=== PATIENT | female | born 1950 | race Caucasian/White ===

== ENCOUNTER 2021-06-10 21:41 | Inpatient (IN) | payer MEDICARE, BC ==
[~2021-06-10] VITALS: Ht 152.4 cm; Wt 62.7 kg
[2021-06-10 22:20] LABS: BASO # 0.1 x10^3/uL (0.0-0.2); BASO % 1 % (0-3); EOS % 0 % (0-3); HEMATOCRIT 30.6 % (36.0-47.0); HEMOGLOBIN 10.1 g/dL (12.0-15.5); LYMPH # 1.2 x10^3/uL (1.0-4.8); LYMPH % 11 % (24-48); MEAN CORPUSCULAR HEMOGLOBIN 31 pg (25-35); MEAN CORPUSCULAR HGB CONC 33 g/dL (31-37); MEAN CORPUSCULAR VOLUME 92 fL (79-100); MONO # 0.4 x10^3/uL (0.0-1.1); MONO % 3 % (0-9); NEUT # 9.9 x10^3/uL (1.8-7.7); NEUT % 86 % (31-73); PLATELET COUNT 417 x10^3/uL (140-400); RED BLOOD COUNT 3.33 x10^6/uL (3.50-5.40); RED CELL DISTRIBUTION WIDTH 16.8 % (11.5-14.5); WHITE BLOOD COUNT 11.6 x10^3/uL (4.0-11.0)
[2021-06-10 22:29] LABS: CALCIUM 8.7 mg/dL (8.5-10.1); CREATININE 1.8 mg/dL (0.6-1.0); GFR 27.7; POTASSIUM 3.4 mmol/L (3.5-5.1)
[2021-06-10] MEDS ORDERED: IV NORMAL SALINE 1000ML BAG 1,000 ML IV ONE ×2 (22:30→23:45)
[2021-06-10 22:35] LABS: ALBUMIN 3.4 g/dL (3.4-5.0); ALBUMIN/GLOBULIN RATIO 0.6 (1.0-1.7); TOTAL BILIRUBIN 0.6 mg/dL (0.2-1.0)
[2021-06-10 22:38] LABS: INFLUENZA A PATIENT NEGATIVE (NEGATIVE); INFLUENZA B PATIENT NEGATIVE (NEGATIVE)
[2021-06-10 22:50] LABS: BILIRUBIN,URINE SMALL (NEG); CLARITY,URINE CLEAR; COLOR,URINE YELLOW; NITRITE,URINE NEGATIVE (NEG); PROTEIN,URINE NEGATIVE (NEG-TRACE); UROBILINOGEN,URINE 0.2 mg/dL (0.2 mg/dL)
--- NOTE | 2021-06-10 22:55 | RAD ---
Exam: Chest one view INDICATION: Cough TECHNIQUE: Frontal view of the chest Comparisons: None FINDINGS: Surgical clips overlying the left lung base. The cardiomediastinal silhouette and pulmonary vessels are within normal limits. Patchy bibasilar airspace disease. No pleural effusion IMPRESSION: Subtle bibasilar airspace disease may be infectious or inflammatory in etiology. Electronically signed by: Nupur Clemente MD (06/10/2021 10:53 PM) SADIE
[2021-06-10 23:05] LABS: BACTERIA,URINE MANY /HPF (0-FEW); HYALINE CASTS, URINE FEW /HPF; RBC,URINE 0 /HPF (0-2)
--- NOTE | 2021-06-10 23:18 | PHYS DOC ---
Past Medical History Past Medical History: Diabetes-Type II, Fibromyalgia, High Cholesterol, Hypertension Additional Past Medical Histor: Rheumatoid arthritis Past Surgical History: Cholecystectomy, Tubal ligation Additional Past Surgical Histo: HERNIA General Adult EDM: Chief Complaint: WEAKNESS/GENERALIZED HPI: HPI: Patient is a 71 year old female with history of HTN, HLD, DM, rheumatoid arthritis on tofacitinib who presents with 4 days of fatigue, cough, congestion, mild shortness of breath. Denies fever/chills. Over the past couple of days has had nausea and diarrhea. No dark/bloody stools. Denies chest pain, lower extremity edema, recent surgery or prolonged immobilizations. She had a negative outpatient Covid test earlier this week. She had an episode of decreased consciousness on the way to the hospital, where she slumped in her car seat, and spontaneously became alert once again. She states that she remembers the entire episode. Prehospital stroke scale was negative. Glucose in 200s. Was placed on 2lpm NC prior to arrival. Review of Systems: Review of Systems: Constitutional: Denies fever or chills. [] Eyes: Denies change in visual acuity. [] HENT: Reports nasal congestion Respiratory: Reports cough and shortness of breath Cardiovascular: Denies chest pain or edema. [] GI: Denies abdominal pain. Reports nausea and diarrhea. Musculoskeletal: Denies back pain or joint pain. [] Integument: Denies rash. [] Neurologic: Denies headache, focal weakness or sensory changes. [] Psychiatric: Denies depression or anxiety. [] Heart Score: C/O Chest Pain: No Current Medications: Current Medications Medications (Trade) Dose Ordered Sig/Carlos Start Time Stop Time Status Last Admin Dose Admin Ceftriaxone Sodium (Rocephin) 1 gm 1X ONCE 06/10/21 23:30 06/10/21 23:31 Dexamethasone Sodium Phosphate (Decadron) 6 mg 1X ONCE 06/10/21 23:30 06/10/21 23:31 Doxycycline Hyclate (Vibra-Tab) 100 mg 1X ONCE 06/10/21 23:30 06/10/21 23:31 Sodium Chloride 1,000 ml @ 1,000 mls/hr 1X ONCE 06/10/21 22:30 06/10/21 23:29 06/10/21 22:30 1,000 MLS/HR Allergies: Allergies: Allergies Coded Allergies Type Severity Reaction Last Updated Verified No Known Drug Allergies 06/10/21 No Physical Exam: PE: Constitutional: Well developed, well nourished, no acute distress, non-toxic appearance. [] HENT: Normocephalic, atraumatic, bilateral external ears normal, oropharynx moist, no oral exudates, nose normal. [] Eyes: PERRLA, EOMI, conjunctiva normal, no discharge. [] Neck: Normal range of motion, no tenderness, supple, no stridor. [] Cardiovascular:Heart rate regular rhythm, no murmur [] Lungs & Thorax: Crackles in the bases, normal work of breathing. Desaturations to 88% on room air. Stabilizes on nasal cannula. Abdomen: Bowel sounds normal, soft, no tenderness, no masses, no pulsatile masses. [] Skin: Warm, dry, no erythema, no rash. [] Back: No tenderness, no CVA tenderness. [] Extremities: No tenderness, no cyanosis, no clubbing, ROM intact, no edema. [] Neurologic: Alert and oriented X 3, normal motor function, normal sensory function, no focal deficits noted. [] Psychologic: Affect normal, judgement normal, mood normal. [] Current Patient Data: Labs: Laboratory Tests Test 06/10/21 22:00 06/10/21 22:08 06/10/21 22:30 White Blood Count 11.6 x10^3/uL (4.0-11.0) H Red Blood Count 3.33 x10^6/uL (3.50-5.40) L Hemoglobin 10.1 g/dL (12.0-15.5) L Hematocrit 30.6 % (36.0-47.0) L Mean Corpuscular Volume 92 fL (79-100) Mean Corpuscular Hemoglobin 31 pg (25-35) Mean Corpuscular Hemoglobin Concent 33 g/dL (31-37) Red Cell Distribution Width 16.8 % (11.5-14.5) H Platelet Count 417 x10^3/uL (140-400) H Neutrophils (%) (Auto) 86 % (31-73) H Lymphocytes (%) (Auto) 11 % (24-48) L Monocytes (%) (Auto) 3 % (0-9) Eosinophils (%) (Auto) 0 % (0-3) Basophils (%) (Auto) 1 % (0-3) Neutrophils # (Auto) 9.9 x10^3/uL (1.8-7.7) H Lymphocytes # (Auto) 1.2 x10^3/uL (1.0-4.8) Monocytes # (Auto) 0.4 x10^3/uL (0.0-1.1) Eosinophils # (Auto) 0.0 x10^3/uL (0.0-0.7) Basophils # (Auto) 0.1 x10^3/uL (0.0-0.2) Platelet Estimate Pending Sodium Level 127 mmol/L (136-145) L Potassium Level 3.4 mmol/L (3.5-5.1) L Chloride Level 90 mmol/L (98-107) L Carbon Dioxide Level 24 mmol/L (21-32) Anion Gap 13 (6-14) Blood Urea Nitrogen 54 mg/dL (7-20) H Creatinine 1.8 mg/dL (0.6-1.0) H Estimated GFR (Cockcroft-Gault) 27.7 BUN/Creatinine Ratio 30 (6-20) H Glucose Level 129 mg/dL (70-99) H Lactic Acid Level 4.5 mmol/L (0.4-2.0) *H Calcium Level 8.7 mg/dL (8.5-10.1) Total Bilirubin 0.6 mg/dL (0.2-1.0) Aspartate Amino Transferase (AST) 54 U/L (15-37) H Alanine Aminotransferase (ALT) 43 U/L (14-59) Alkaline Phosphatase 78 U/L (46-116) Troponin I High Sensitivity 9 ng/L (4-50) Total Protein 9.0 g/dL (6.4-8.2) H Albumin 3.4 g/dL (3.4-5.0) Albumin/Globulin Ratio 0.6 (1.0-1.7) L Influenza Type A Antigen Negative (NEGATIVE) Influenza Type B Antigen Negative (NEGATIVE) SARS-CoV-2 Antigen (Rapid) Positive (NEGATIVE) *A Urine Collection Type U cath Urine Color Yellow Urine Clarity Clear Urine pH 6.0 (<5.0-8.0) Urine Specific [place] 1.020 (1.000-1.030) Urine Protein Negative mg/dL (NEG-TRACE) Urine Glucose (UA) Negative mg/dL (NEG) Urine Ketones (Stick) Trace mg/dL (NEG) Urine Blood Negative (NEG) Urine Nitrite Negative (NEG) Urine Bilirubin Small (NEG) Urine Urobilinogen Dipstick 0.2 mg/dL (0.2 mg/dL) Urine Leukocyte Esterase Small (NEG) Urine RBC 0 /HPF (0-2) Urine WBC 5-10 /HPF (0-4) Urine Squamous Epithelial Cells Mod /LPF Urine Bacteria Many /HPF (0-FEW) Urine Hyaline Casts Few /HPF Urine Mucus Mod /LPF Laboratory Tests 06/10/21 22:00 Laboratory Tests 06/10/21 22:00 Vital Signs: Vital Signs Date Time Temp Pulse Resp B/P (MAP) Pulse Ox O2 Delivery O2 Flow Rate FiO2 06/10/21 21:45 98.3 100 20 131/59 (83) 96 Nasal Cannula 2.0 98.3 EKG: EKG: Sinus rhythm. Rate 104. Mild lateral ST depressions. No ST elevation. [] Radiology/Procedures: Radiology/Procedures: [] Impression: [facility] [address] [place] [address] IMAGING REPORT Signed PATIENT: HOLLI FIGUEROA ACCOUNT: [id number] : 1950 LOCATION: ER AGE: 71 SEX: F EXAM STATUS: REG ER ORD. PHYSICIAN: RAQUEL AWAD MD REASON: cough, sob, fatigue PROCEDURE: CHEST AP ONLY Exam: Chest one view INDICATION: Cough TECHNIQUE: Frontal view of the chest Comparisons: None FINDINGS: Surgical clips overlying the left lung base. The cardiomediastinal silhouette and pulmonary vessels are within normal limits. Patchy bibasilar airspace disease. No pleural effusion IMPRESSION: Subtle bibasilar airspace disease may be infectious or inflammatory in etiology. Electronically signed by: Nupur Bridges MD (06/10/2021 10:53 PM) [facility] DICTATED and SIGNED BY: NUPUR BRIDGES MD DATE: 06/10/21 [id number] Course & Med Decision Making: Course & Med Decision Making Pertinent Labs and Imaging studies reviewed. (See chart for details) Patient is 71-year-old female with history of DM, HTN, HLD, RA on tofacitinib who presents with several days of fatigue, cough, shortness of breath, nausea, diarrhea. On arrival is afebrile, mildly tachycardic, BP stable. She had desaturations to 88% on room air, but corrected with 2 L/min nasal cannula. Sepsis work-up initiated. Lactate elevated at 4.5. CXR shows subtle bibasilar opacities and WBC mildly elevated. Will give CTX, doxycycline, IV fluids. COVID is positive. Given O2 requirement dexamethasone ordered. Labs also pertinent for mild hyponatremia 127, Cr 1.8 (no baseline for comparison). UA pending at time of admission, but should be adequately covered for UTI given abx selection. Patient verifies with me a DNR/DNI code status. [id number] Marlon Disclaimer: Marlon Disclaimer: This electronic medical record was generated, in whole or in part, using a voice recognition dictation system. Departure Departure Impression: Primary Impression: Respiratory failure with hypoxia Additional Impressions: Pneumonia due to COVID-19 virus Hyponatremia Hypokalemia Elevated serum creatinine Immunocompromised state due to drug therapy Disposition: ADMITTED INPATIENT Admitting Physician: NOVA Oliveira) Condition: STABLE Referrals: NAYE LOCKWOOD MD (PCP) RAQUEL AWAD MD Jun 10, 2021 23:18
[2021-06-10] MEDS ORDERED: DEXAMETHASONE SOD PHOS 4 MG/ML VIAL IVP ONE (23:30)
[2021-06-10] MEDS ORDERED: cefTRIAXone IV Push 1 GM VIAL. IVP ONE (23:30)
[2021-06-10] MEDS ORDERED: DOXYCYCLINE HYCLATE 100 MG TABLET PO ONE (23:30)
--- NOTE | 2021-06-11 02:03 | EKG ---
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
[2021-06-11 04:41] LABS: % ATYL 1 % (0-0); % BANDS 11 % (0-9); % LYMPHS 11 % (24-48); % SEGS 77 % (35-66); PLT ESTIMATE INCREASED (ADEQUATE); POLYCHROMASIA SLIGHT
[2021-06-11 05:42] VITALS: BP 134/64
[2021-06-11 07:00] VITALS: BP 137/64
[2021-06-11] MEDS ORDERED: oxyCODONE/APAP 5/325 1 TAB TABLET PO PRN ×2 (10:00)
[2021-06-11] MEDS ORDERED: ZOLPIDEM 5 MG TABLET. PO PRN (10:00)
[2021-06-11] MEDS ORDERED: ONDANSETRON PF 4 MG/2 ML VIAL. IVP PRN (10:00)
[2021-06-11] MEDS ORDERED: ELECTROLYTE (NON-ICU) PROTOCOL. MC PRN (10:00)
[2021-06-11] MEDS ORDERED: CALCIUM CARBONATE 500 MG TAB.CHEW PO PRN (10:00)
[2021-06-11] MEDS: DOXYCYCLINE HYCLATE 100 MG TABLET PO SCH ×2 (10:38→21:39)
[2021-06-11] MEDS: cefTRIAXone IV Push 1 GM VIAL. IVP SCH (10:39)
[2021-06-11 11:00] VITALS: BP 132/61
--- NOTE | 2021-06-11 11:04 | PDOC1 ---
History and Physical Date of Service: DOS: DATE: 06/11/21 TIME: 10:55 Chief Complaint: Chief Complain: weakness, sob History of Present Illness: HPI: Patient is 71-year-old female presented to the emergency room overnight 5-day history of fatigue cough congestion shortness of breath. Says her symptoms have been continually worsening. She has been Covid vaccinated. No test earlier this week she says it was negative. With the symptoms still worsening she decided to present to the hospital. While driving here she had some decreased consciousness in the car became alert again within a few seconds. When I evaluated her in the emergency room she was resting in bed on 2 L nasal cannula. She said her breathing was still a little bit labored but otherwise no complaints. Past Medical/Surgical History: PMH/PSH: Past Medical History: Diabetes-Type II, Fibromyalgia, High Cholesterol, Hypertension Additional Past Medical Histor: Rheumatoid arthritis on Xeljanz Past Surgical History: Cholecystectomy, Tubal ligation Additional Past Surgical Histo: HERNIA Allergies: Allergies: Coded Allergies: No Known Drug Allergies (Unverified , 06/10/21) Family History: Family History: HTN Current Medications: Current Medications Current Medications Sodium Chloride 1,000 ml @ 1,000 mls/hr 1X ONCE IV Last administered on 06/10/21at 22:30; Start 06/10/21 at 22:30; Stop 06/10/21 at 23:29; Status DC Dexamethasone Sodium Phosphate (Decadron) 6 mg 1X ONCE IVP Last administered on 06/10/21at 23:44; Start 06/10/21 at 23:30; Stop 06/10/21 at 23:31; Status DC Ceftriaxone Sodium (Rocephin) 1 gm 1X ONCE IVP Last administered on 06/10/21at 23:45; Start 06/10/21 at 23:30; Stop 06/10/21 at 23:31; Status DC Doxycycline Hyclate (Vibra-Tab) 100 mg 1X ONCE PO Last administered on 06/10/21at 23:43; Start 06/10/21 at 23:30; Stop 06/10/21 at 23:31; Status DC Sodium Chloride 1,000 ml @ 100 mls/hr 1X ONCE IV Last administered on 06/10/21at 23:41; Start 06/10/21 at 23:45; Stop 06/11/21 at 09:44; Status DC Dexamethasone Sodium Phosphate (Decadron) 6 mg DAILY IVP ; Start 06/12/21 at 09:00 Ceftriaxone Sodium (Rocephin) 1 gm Q24H IVP Last administered on 06/11/21at 10:39; Start 06/11/21 at 10:00 Doxycycline Hyclate (Vibra-Tab) 100 mg BID PO Last administered on 06/11/21at 10:38; Start 06/11/21 at 10:00 Ondansetron HCl (Zofran) 4 mg PRN Q6HRS PRN IVP NAUSEA/VOMITING; Start 06/11/21 at 10:00 Calcium Carbonate/ Glycine (Tums) 500 mg PRN Q3HRS PRN PO UPSET STOMACH; Start 06/11/21 at 10:00 Zolpidem Tartrate (Ambien) 5 mg PRN QHS PRN PO INSOMNIA, MAY REPEAT IN 1HR; Start 06/11/21 at 10:00 Info (Non-Icu Electrolyte Protocol) 1 ea PRN DAILY PRN MC SEE COMMENTS; Start 06/11/21 at 10:00 Oxycodone/ Acetaminophen (Percocet 5/325) 1 tab PRN Q4HRS PRN PO MILD PAIN, 1ST CHOICE; Start 06/11/21 at 10:00 Oxycodone/ Acetaminophen (Percocet 5/325) 2 tab PRN Q4HRS PRN PO MODERATE PAIN, SEVERE PAIN; Start 06/11/21 at 10:00 Acetaminophen (Tylenol) 650 mg PRN Q6HRS PRN PO Headaches, Temp > 101.5F; Start 06/11/21 at 10:00 Senna/Docusate Sodium (Senna Plus) 1 tab BID PO ; Start 06/11/21 at 21:00 Heparin Sodium (Porcine) (Heparin Sodium) 5,000 unit Q8HRS SQ ; Start 06/11/21 at 14:00 ROS: Review of Systems Review of System Unless noted in HPI 14 point review of systems was negative Physical Exam: Vital Signs: Vital Signs Date Time Temp Pulse Resp B/P (MAP) Pulse Ox O2 Delivery O2 Flow Rate FiO2 06/11/21 05:42 98.1 94 20 134/64 (87) 95 Nasal Cannula 2.0 98.1 Physcial Exam: GEN: No apparent distress. Alert and oriented HEENT: Normal cephalic, atraumatic, external auditory canals are patent EYES: Extraocular muscles are intact, pupil are equally round and reactive to light and accommodation MUSCULOSKELETAL: Well developed , well nourished, good range of motion ENDOCRINE: No thyromegaly was palpated LYMPHATICS: No cervical chain or axillary nodes were noted HEMATOPOIETIC: No bruising NECK: Supple, no JVD, no thyromegaly was noted LUNGS: On nasal cannula some labored respirations HEART: RRR, S!, S2 present. Peripheral pulses intact, no obvious murmurs noted ABDOMEN: Soft, nontender. Positive bowel sounds, no organomegaly, normal b owel sounds EXTREMITIES: Without clubbing, cyanosis, or edema. Pedal pulses intact. Negative Homans sign NEUROLOGIC: Normal speech and tone. A&O x 3, moves all extremities, no obvious focal deficits PSYCHIATRIC: Normal affect, normal mood. Stable SKIN: No ulcerations or rashes, good skin turgor, no jaundice VASCULAR: Good capillary refill, neurovascular bundle appears to be intact Labs: Labs: Laboratory Tests Test 06/10/21 22:00 06/10/21 22:08 06/10/21 22:30 06/11/21 07:56 White Blood Count 11.6 x10^3/uL (4.0-11.0) Red Blood Count 3.33 x10^6/uL (3.50-5.40) Hemoglobin 10.1 g/dL (12.0-15.5) Hematocrit 30.6 % (36.0-47.0) Mean Corpuscular Volume 92 fL (79-100) Mean Corpuscular Hemoglobin 31 pg (25-35) Mean Corpuscular Hemoglobin Concent 33 g/dL (31-37) Red Cell Distribution Width 16.8 % (11.5-14.5) Platelet Count 417 x10^3/uL (140-400) Neutrophils (%) (Auto) 86 % (31-73) Lymphocytes (%) (Auto) 11 % (24-48) Monocytes (%) (Auto) 3 % (0-9) Eosinophils (%) (Auto) 0 % (0-3) Basophils (%) (Auto) 1 % (0-3) Neutrophils # (Auto) 9.9 x10^3/uL (1.8-7.7) Lymphocytes # (Auto) 1.2 x10^3/uL (1.0-4.8) Monocytes # (Auto) 0.4 x10^3/uL (0.0-1.1) Eosinophils # (Auto) 0.0 x10^3/uL (0.0-0.7) Basophils # (Auto) 0.1 x10^3/uL (0.0-0.2) Segmented Neutrophils % 77 % (35-66) Band Neutrophils % 11 % (0-9) Lymphocytes % 11 % (24-48) Atypical Lymphocytes % (Manual) 1 % (0-0) Platelet Estimate Increased (ADEQUATE) Giant Platelets Occ Polychromasia Slight Sodium Level 127 mmol/L (136-145) Potassium Level 3.4 mmol/L (3.5-5.1) Chloride Level 90 mmol/L (98-107) Carbon Dioxide Level 24 mmol/L (21-32) Anion Gap 13 (6-14) Blood Urea Nitrogen 54 mg/dL (7-20) Creatinine 1.8 mg/dL (0.6-1.0) Estimated GFR (Cockcroft-Gault) 27.7 BUN/Creatinine Ratio 30 (6-20) Glucose Level 129 mg/dL (70-99) Lactic Acid Level 4.5 mmol/L (0.4-2.0) Calcium Level 8.7 mg/dL (8.5-10.1) Total Bilirubin 0.6 mg/dL (0.2-1.0) Aspartate Amino Transf (AST/SGOT) 54 U/L (15-37) Alanine Aminotransferase (ALT/SGPT) 43 U/L (14-59) Alkaline Phosphatase 78 U/L (46-116) Troponin I High Sensitivity 9 ng/L (4-50) Total Protein 9.0 g/dL (6.4-8.2) Albumin 3.4 g/dL (3.4-5.0) Albumin/Globulin Ratio 0.6 (1.0-1.7) Influenza Type A Antigen Negative (NEGATIVE) Influenza Type B Antigen Negative (NEGATIVE) SARS-CoV-2 Antigen (Rapid) Positive (NEGATIVE) Urine Collection Type U cath Urine Color Yellow Urine Clarity Clear Urine pH 6.0 (<5.0-8.0) Urine Specific [place] 1.020 (1.000-1.030) Urine Protein Negative mg/dL (NEG-TRACE) Urine Glucose (UA) Negative mg/dL (NEG) Urine Ketones (Stick) Trace mg/dL (NEG) Urine Blood Negative (NEG) Urine Nitrite Negative (NEG) Urine Bilirubin Small (NEG) Urine Urobilinogen Dipstick 0.2 mg/dL (0.2 mg/dL) Urine Leukocyte Esterase Small (NEG) Urine RBC 0 /HPF (0-2) Urine WBC 5-10 /HPF (0-4) Urine Squamous Epithelial Cells Mod /LPF Urine Bacteria Many /HPF (0-FEW) Urine Hyaline Casts Few /HPF Urine Mucus Mod /LPF Glucose (Fingerstick) 150 mg/dL (70-99) Laboratory Tests Test 06/10/21 22:00 06/10/21 22:08 06/10/21 22:30 06/11/21 07:56 White Blood Count 11.6 x10^3/uL (4.0-11.0) Red Blood Count 3.33 x10^6/uL (3.50-5.40) Hemoglobin 10.1 g/dL (12.0-15.5) Hematocrit 30.6 % (36.0-47.0) Mean Corpuscular Volume 92 fL (79-100) Mean Corpuscular Hemoglobin 31 pg (25-35) Mean Corpuscular Hemoglobin Concent 33 g/dL (31-37) Red Cell Distribution Width 16.8 % (11.5-14.5) Platelet Count 417 x10^3/uL (140-400) Neutrophils (%) (Auto) 86 % (31-73) Lymphocytes (%) (Auto) 11 % (24-48) Monocytes (%) (Auto) 3 % (0-9) Eosinophils (%) (Auto) 0 % (0-3) Basophils (%) (Auto) 1 % (0-3) Neutrophils # (Auto) 9.9 x10^3/uL (1.8-7.7) Lymphocytes # (Auto) 1.2 x10^3/uL (1.0-4.8) Monocytes # (Auto) 0.4 x10^3/uL (0.0-1.1) Eosinophils # (Auto) 0.0 x10^3/uL (0.0-0.7) Basophils # (Auto) 0.1 x10^3/uL (0.0-0.2) Segmented Neutrophils % 77 % (35-66) Band Neutrophils % 11 % (0-9) Lymphocytes % 11 % (24-48) Atypical Lymphocytes % (Manual) 1 % (0-0) Platelet Estimate Increased (ADEQUATE) Giant Platelets Occ Polychromasia Slight Sodium Level 127 mmol/L (136-145) Potassium Level 3.4 mmol/L (3.5-5.1) Chloride Level 90 mmol/L (98-107) Carbon Dioxide Level 24 mmol/L (21-32) Anion Gap 13 (6-14) Blood Urea Nitrogen 54 mg/dL (7-20) Creatinine 1.8 mg/dL (0.6-1.0) Estimated GFR (Cockcroft-Gault) 27.7 BUN/Creatinine Ratio 30 (6-20) Glucose Level 129 mg/dL (70-99) Lactic Acid Level 4.5 mmol/L (0.4-2.0) Calcium Level 8.7 mg/dL (8.5-10.1) Total Bilirubin 0.6 mg/dL (0.2-1.0) Aspartate Amino Transf (AST/SGOT) 54 U/L (15-37) Alanine Aminotransferase (ALT/SGPT) 43 U/L (14-59) Alkaline Phosphatase 78 U/L (46-116) Troponin I High Sensitivity 9 ng/L (4-50) Total Protein 9.0 g/dL (6.4-8.2) Albumin 3.4 g/dL (3.4-5.0) Albumin/Globulin Ratio 0.6 (1.0-1.7) Influenza Type A Antigen Negative (NEGATIVE) Influenza Type B Antigen Negative (NEGATIVE) SARS-CoV-2 Antigen (Rapid) Positive (NEGATIVE) Urine Collection Type U cath Urine Color Yellow Urine Clarity Clear Urine pH 6.0 (<5.0-8.0) Urine Specific [place] 1.020 (1.000-1.030) Urine Protein Negative mg/dL (NEG-TRACE) Urine Glucose (UA) Negative mg/dL (NEG) Urine Ketones (Stick) Trace mg/dL (NEG) Urine Blood Negative (NEG) Urine Nitrite Negative (NEG) Urine Bilirubin Small (NEG) Urine Urobilinogen Dipstick 0.2 mg/dL (0.2 mg/dL) Urine Leukocyte Esterase Small (NEG) Urine RBC 0 /HPF (0-2) Urine WBC 5-10 /HPF (0-4) Urine Squamous Epithelial Cells Mod /LPF Urine Bacteria Many /HPF (0-FEW) Urine Hyaline Casts Few /HPF Urine Mucus Mod /LPF Glucose (Fingerstick) 150 mg/dL (70-99) Assessment/Plan Assessment/Plan Acute Hypoxic respiratory failure secondary to COVID-19 pneumonia, history of diabetes fibromyalgia hypertension hyperlipidemia rheumatoid arthritis on home Xeljanz -Presented with worsening respiratory symptoms to be Covid positive in emergency room -Start Covid treatment Rocephin doxy dexamethasone as needed cough medicine -Wean oxygen as tolerated -Patient says she is resumed Xeljanz in the past while having infection. Not on formulary here but she should be able to take her own supply -PT OT -Diabetic diet -DVT prophylaxis -Needs med rec Justifications for Admission Other Justification ESTRELLA LEVY MD Jun 11, 2021 11:04
[2021-06-11 12:06] LABS: CALCIUM 7.9 mg/dL (8.5-10.1); GFR 54.7; POTASSIUM 3.8 mmol/L (3.5-5.1)
[2021-06-11 15:00] VITALS: BP 140/62
[2021-06-11] MEDS: HEPARIN for SUB-Q USE 5,000 UNIT/ML VIAL. SQ SCH ×2 (15:02→21:41)
[2021-06-11] MEDS ORDERED: IRBE1TAB5 PO (15:58)
[2021-06-11] MEDS ORDERED: OMEP20CA16 PO (15:58)
[2021-06-11] MEDS ORDERED: METF500T16 PO (15:58)
[2021-06-11] MEDS ORDERED: CELE200C PO (15:58)
[2021-06-11] MEDS ORDERED: ATOR40TA59 PO (15:58)
[2021-06-11] MEDS ORDERED: LACT1CAP6 PO (15:58)
[2021-06-11] MEDS ORDERED: TRAM50TA PO (15:58)
[2021-06-11] MEDS ORDERED: TOFA11TA PO (15:58)
[2021-06-11] MEDS ORDERED: NORT25CA PO (15:58)
[2021-06-11] MEDS ORDERED: MILN50TA PO (15:58)
[2021-06-11] MEDS ORDERED: CHOL5000 PO (15:58)
--- NOTE | 2021-06-11 16:00 | NUR ---
Nurse's note: The patient is in ED Hold, received report from Valery ALONSO. She is awake, alert, oriented x 4, VSS on 2 liters per nasal cannula with O2 sat at 95 to 97%. She denies pain. The patient ambulates with assist to the bathroom and continent of bowel and bladder. Her medications were reviewed, belongings checked, and call light placed within reach.
[2021-06-11 19:00] VITALS: BP 124/60
[2021-06-11] MEDS: NORTRIPTYLINE 25 MG CAPSULE PO SCH (21:39)
[2021-06-11] MEDS: SENNOSIDES/DOCUSATE 8.6/50MG TABLET. PO SCH (21:39)
[2021-06-11] MEDS: ATORVASTATIN CALCIUM 40 MG TABLET. PO SCH (21:41)
[2021-06-11] MEDS: traMADol 50 MG TABLET PO PRN (21:54)
[2021-06-11 22:42] VITALS: BP 129/90
[2021-06-12 03:00] VITALS: BP 125/84
[2021-06-12] MEDS: HEPARIN for SUB-Q USE 5,000 UNIT/ML VIAL. SQ SCH ×3 (05:30→21:47)
[2021-06-12 07:00] VITALS: BP 127/63
[2021-06-12] MEDS: CHOLECALCIFEROL (VITAMIN D3) 5,000 UNIT CAPSULE PO SCH (08:55)
[2021-06-12] MEDS: LACTOBACILLUS RHAMNOSUS GG 1 CAPSULE. PO SCH (08:55)
[2021-06-12] MEDS: PANTOPRAZOLE 40 MG TABLET.DR. PO SCH (08:56)
[2021-06-12] MEDS: hydroCHLOROthiazide 12.5 MG CAPSULE PO SCH (08:56)
[2021-06-12] MEDS: SENNOSIDES/DOCUSATE 8.6/50MG TABLET. PO SCH ×2 (08:56→21:00)
[2021-06-12] MEDS: LOSARTAN POTASSIUM 50 MG TABLET. PO SCH (08:57)
[2021-06-12] MEDS: DOXYCYCLINE HYCLATE 100 MG TABLET PO SCH ×2 (08:57→21:56)
[2021-06-12] MEDS: cefTRIAXone IV Push 1 GM VIAL. IVP SCH (08:58)
[2021-06-12] MEDS: DEXAMETHASONE SOD PHOS 4 MG/ML VIAL IVP SCH (08:58)
[2021-06-12] MEDS ORDERED: NON FORMULARY ITEM (Tofacitinib Citrate (Xeljanz Xr) 11 MG) PO SCH (09:00)
[2021-06-12 11:00] VITALS: BP 95/45
--- NOTE | 2021-06-12 12:56 | PDOC ---
[employer] PROGRESS NOTE Date of Service DOS: DATE: 06/12/21 TIME: 12:55 Chief Complaint Chief Complaint Assessment/Plan Acute Hypoxic respiratory failure secondary to COVID-19 pneumonia, history of diabetes fibromyalgia hypertension hyperlipidemia rheumatoid arthritis on home Xeljanz -Presented with worsening respiratory symptoms to be Covid positive in emergency room -Start Covid treatment Rocephin doxy dexamethasone as needed cough medicine -Wean oxygen as tolerated -Patient says she is resumed Xeljanz in the past while having infection. Not on formulary here but she should be able to take her own supply -PT OT -Diabetic diet -DVT prophylaxis -Needs med rec History of Present Illness History of Present Illness 71-year-old female presented to the emergency room overnight 5-day history of fatigue cough congestion shortness of breath. Says her symptoms have been continually worsening. She has been Covid vaccinated. No test earlier this week she says it was negative. With the symptoms still worsening she decided to present to the hospital. While driving here she had some decreased consciousness in the car became alert again within a few seconds. When I evaluated her in the emergency room she was resting in bed on 2 L nasal cannula. She said her breathing was still a little bit labored but otherwise no complaints. 06/12/2021 No acute events overnight. Patient seen and examined bedside. Saturating 93% on 5 L nasal cannula. No dyspnea at this time. Patient's chart, labs, images were reviewed and discussed with RN Vitals/I&O Vitals/I&O: Vital Signs Date Time Temp Pulse Resp B/P (MAP) Pulse Ox O2 Delivery O2 Flow Rate FiO2 06/12/21 11:00 98.0 97 16 95/45 (62) 93 Nasal Cannula 5.0 98.0 I & O 06/11/21 06/11/21 06/12/21 15:00 23:00 07:00 Intake Total 480 ml 200 ml Balance 480 ml 200 ml Labs Labs: Laboratory Tests Test 06/11/21 18:57 06/12/21 08:01 06/12/21 11:12 Glucose (Fingerstick) 98 mg/dL (70-99) 98 mg/dL (70-99) 124 mg/dL (70-99) Assessment and Plan Assessmemt and Plan Problems Medical Problems: (1) Elevated serum creatinine Status: Acute (2) Hypokalemia Status: Acute (3) Hyponatremia Status: Acute (4) Immunocompromised state due to drug therapy Status: Acute (5) Pneumonia due to COVID-19 virus Status: Acute (6) Respiratory failure with hypoxia Status: Acute Comment Review of Relevant I have reviewed the following items jaz (where applicable) has been applied. Medications: Current Medications Medications (Trade) Dose Ordered Sig/Carlos Route PRN Reason Start Time Stop Time Status Last Admin Dose Admin Dexamethasone Sodium Phosphate (Decadron) 6 mg DAILY IVP 06/12/21 09:00 06/12/21 08:58 Senna/Docusate Sodium (Senna Plus) 1 tab BID PO 06/11/21 21:00 06/12/21 08:56 Heparin Sodium (Porcine) (Heparin Sodium) 5,000 unit Q8HRS SQ 06/11/21 14:00 06/12/21 05:30 Atorvastatin Calcium (Lipitor) 40 mg QHS PO 06/11/21 21:00 06/11/21 21:41 Vitamin D (Vitamin D3) 5,000 unit DAILY PO 06/12/21 09:00 06/12/21 08:55 Nortriptyline HCl (Pamelor) 25 mg QHS PO 06/11/21 21:00 06/11/21 21:39 Tramadol HCl (Ultram) 50 mg Q4HRS PRN PO MILD PAIN 1-3 06/11/21 16:30 06/11/21 21:54 Losartan Potassium (Cozaar) 50 mg DAILY PO 06/12/21 09:00 06/12/21 08:57 Lactobacillus Rhamnosus (Culturelle) 1 cap DAILY PO 06/12/21 09:00 06/12/21 08:55 Pantoprazole Sodium (Protonix) 40 mg DAILYAC PO 06/12/21 07:30 06/12/21 08:56 Hydrochlorothiazide (Microzide) 12.5 mg DAILY PO 06/12/21 09:00 06/12/21 08:56 Justifications for Admission Other Justification ROSINA PETIT MD Jun 12, 2021 12:56
[2021-06-12 15:00] VITALS: BP 118/67
[2021-06-12 19:00] VITALS: BP 119/64
[2021-06-12] MEDS: ATORVASTATIN CALCIUM 40 MG TABLET. PO SCH (21:56)
[2021-06-12] MEDS: NORTRIPTYLINE 25 MG CAPSULE PO SCH (21:56)
[2021-06-12 22:46] VITALS: BP 134/70
[2021-06-13 02:39] VITALS: BP 126/64
[2021-06-13] MEDS: HEPARIN for SUB-Q USE 5,000 UNIT/ML VIAL. SQ SCH ×3 (05:56→21:26)
[2021-06-13 07:00] VITALS: BP 115/55
[2021-06-13] MEDS: PANTOPRAZOLE 40 MG TABLET.DR. PO SCH (09:20)
[2021-06-13] MEDS: DOXYCYCLINE HYCLATE 100 MG TABLET PO SCH ×2 (09:20→21:25)
[2021-06-13] MEDS: DEXAMETHASONE SOD PHOS 4 MG/ML VIAL IVP SCH (09:20)
[2021-06-13] MEDS: LACTOBACILLUS RHAMNOSUS GG 1 CAPSULE. PO SCH (09:20)
[2021-06-13] MEDS: CHOLECALCIFEROL (VITAMIN D3) 5,000 UNIT CAPSULE PO SCH (09:21)
[2021-06-13] MEDS: LOSARTAN POTASSIUM 50 MG TABLET. PO SCH (09:21)
[2021-06-13] MEDS: hydroCHLOROthiazide 12.5 MG CAPSULE PO SCH (09:21)
[2021-06-13] MEDS: SENNOSIDES/DOCUSATE 8.6/50MG TABLET. PO SCH ×2 (09:21→21:00)
[2021-06-13] MEDS: cefTRIAXone IV Push 1 GM VIAL. IVP SCH (10:13)
[2021-06-13 11:00] VITALS: BP 132/70
--- NOTE | 2021-06-13 12:22 | PDOC ---
[facility] PROGRESS NOTE Date of Service DOS: DATE: 06/13/21 TIME: 12:21 Chief Complaint Chief Complaint Assessment/Plan Acute Hypoxic respiratory failure secondary to COVID-19 pneumonia, history of diabetes fibromyalgia hypertension hyperlipidemia rheumatoid arthritis on home Xeljanz -Presented with worsening respiratory symptoms to be Covid positive in emergency room -Start Covid treatment Rocephin doxy dexamethasone as needed cough medicine -Wean oxygen as tolerated -Patient says she is resumed Xeljanz in the past while having infection. Not on formulary here but she should be able to take her own supply -PT OT -Diabetic diet -DVT prophylaxis -Needs med rec History of Present Illness History of Present Illness 71-year-old female presented to the emergency room overnight 5-day history of fatigue cough congestion shortness of breath. Says her symptoms have been continually worsening. She has been Covid vaccinated. No test earlier this week she says it was negative. With the symptoms still worsening she decided to present to the hospital. While driving here she had some decreased consciousness in the car became alert again within a few seconds. When I evaluated her in the emergency room she was resting in bed on 2 L nasal cannula. She said her breathing was still a little bit labored but otherwise no complaints. 06/12/2021 No acute events overnight. Patient seen and examined bedside. Saturating 93% on 5 L nasal cannula. No dyspnea at this time. Patient's chart, labs, images were reviewed and discussed with RN 06/13/2021 No acute events overnight. Patient seen examined bedside. Saturating 92% on 5 L nasal cannula. Patient unable to tolerate 6-minute walk test. Needing at least 9 L of nasal cannula oxygen while exertion. Patient's chart, labs, images were reviewed and discussed with RN Vitals/I&O Vitals/I&O: Vital Signs Date Time Temp Pulse Resp B/P (MAP) Pulse Ox O2 Delivery O2 Flow Rate FiO2 06/13/21 11:00 98.3 101 132/70 (90) 89 98.3 06/13/21 08:30 Nasal Cannula 5.0 06/13/21 07:00 18 I & O 06/12/21 06/12/21 06/13/21 15:00 23:00 07:00 Intake Total 250 ml Output Total 300 ml Balance 250 ml -300 ml Labs Labs: Laboratory Tests Test 06/12/21 17:35 06/13/21 07:31 06/13/21 10:55 Glucose (Fingerstick) 153 mg/dL (70-99) 110 mg/dL (70-99) 122 mg/dL (70-99) Assessment and Plan Assessmemt and Plan Problems Medical Problems: (1) Elevated serum creatinine Status: Acute (2) Hypokalemia Status: Acute (3) Hyponatremia Status: Acute (4) Immunocompromised state due to drug therapy Status: Acute (5) Pneumonia due to COVID-19 virus Status: Acute (6) Respiratory failure with hypoxia Status: Acute Comment Review of Relevant I have reviewed the following items jaz (where applicable) has been applied. Justifications for Admission Other Justification ROSINA PETIT MD Jun 13, 2021 12:22
--- NOTE | 2021-06-13 13:41 | NUR ---
SW following. Discussed with RN, pt from home with , 5L, ada diet, COVID-19 positive. Pt will need a 6 minute walk prior to discharge. SW will continue to follow.
[2021-06-13] MEDS: traMADol 50 MG TABLET PO PRN (14:34)
[2021-06-13 15:00] VITALS: BP 120/69
[2021-06-13] MEDS ORDERED: REMDESIVIR LOAD in IV NORMAL SALINE 250ML TV IV ONE (15:00)
[2021-06-13 19:00] VITALS: BP 112/82
[2021-06-13] MEDS: ATORVASTATIN CALCIUM 40 MG TABLET. PO SCH (21:24)
[2021-06-13] MEDS: NORTRIPTYLINE 25 MG CAPSULE PO SCH (21:24)
[2021-06-13 23:03] VITALS: BP 123/69
[2021-06-14 03:07] VITALS: BP 121/65
[2021-06-14] MEDS: HEPARIN for SUB-Q USE 5,000 UNIT/ML VIAL. SQ SCH ×3 (05:08→21:41)
[2021-06-14 07:00] VITALS: BP 117/58
[2021-06-14] MEDS: SENNOSIDES/DOCUSATE 8.6/50MG TABLET. PO SCH ×3 (07:55→21:24)
[2021-06-14] MEDS: LACTOBACILLUS RHAMNOSUS GG 1 CAPSULE. PO SCH (07:55)
[2021-06-14] MEDS: DOXYCYCLINE HYCLATE 100 MG TABLET PO SCH ×2 (07:55→21:24)
[2021-06-14] MEDS: CHOLECALCIFEROL (VITAMIN D3) 5,000 UNIT CAPSULE PO SCH (07:55)
[2021-06-14] MEDS: PANTOPRAZOLE 40 MG TABLET.DR. PO SCH (07:55)
[2021-06-14] MEDS: LOSARTAN POTASSIUM 50 MG TABLET. PO SCH (09:10)
[2021-06-14] MEDS: hydroCHLOROthiazide 12.5 MG CAPSULE PO SCH (09:10)
[2021-06-14] MEDS: DEXAMETHASONE SOD PHOS 4 MG/ML VIAL IVP SCH (09:10)
[2021-06-14] MEDS: cefTRIAXone IV Push 1 GM VIAL. IVP SCH (09:11)
[2021-06-14 11:00] VITALS: BP 113/59
--- NOTE | 2021-06-14 13:28 | PDOC ---
[facility] PROGRESS NOTE Date of Service DOS: DATE: 06/14/21 TIME: 13:27 Chief Complaint Chief Complaint Assessment/Plan Acute Hypoxic respiratory failure secondary to COVID-19 pneumonia, history of diabetes fibromyalgia hypertension hyperlipidemia rheumatoid arthritis on home Xeljanz -Presented with worsening respiratory symptoms to be Covid positive in emergency room -Start Covid treatment Rocephin doxy dexamethasone as needed cough medicine -Wean oxygen as tolerated -Patient says she is resumed Xeljanz in the past while having infection. Not on formulary here but she should be able to take her own supply -PT OT -Diabetic diet -DVT prophylaxis -Needs med rec History of Present Illness History of Present Illness 71-year-old female presented to the emergency room overnight 5-day history of fatigue cough congestion shortness of breath. Says her symptoms have been continually worsening. She has been Covid vaccinated. No test earlier this week she says it was negative. With the symptoms still worsening she decided to present to the hospital. While driving here she had some decreased consciousness in the car became alert again within a few seconds. When I evaluated her in the emergency room she was resting in bed on 2 L nasal cannula. She said her breathing was still a little bit labored but otherwise no complaints. 06/12/2021 No acute events overnight. Patient seen and examined bedside. Saturating 93% on 5 L nasal cannula. No dyspnea at this time. Patient's chart, labs, images were reviewed and discussed with RN 06/13/2021 No acute events overnight. Patient seen examined bedside. Saturating 92% on 5 L nasal cannula. Patient unable to tolerate 6-minute walk test. Needing at least 9 L of nasal cannula oxygen while exertion. Patient's chart, labs, images were reviewed and discussed with RN 06/14/2021 No acute events overnight. Patient seen examined bedside. Patient saturating 90% on 9 L nasal cannula. Will hold off on 6-minute walk test until O2 requirements have decreased. Otherwise not short of breath more than usual. Patient's chart, labs, images were reviewed and discussed with RN Vitals/I&O Vitals/I&O: Vital Signs Date Time Temp Pulse Resp B/P (MAP) Pulse Ox O2 Delivery O2 Flow Rate FiO2 06/14/21 11:00 98.2 98 20 113/59 (77) 92 Nasal Cannula 9.0 98.2 I & O 06/13/21 06/13/21 06/14/21 15:00 23:00 07:00 Intake Total 210 ml 250 ml Output Total 400 ml Balance 210 ml -150 ml Physical Exam General: Alert, Oriented X3, Cooperative Heart: Regular rate Lungs: Clear Abdomen: Normal bowel sounds Extremities: No clubbing Skin: No rashes Labs Labs: Laboratory Tests Test 06/13/21 16:40 06/13/21 20:57 06/14/21 07:41 06/14/21 11:30 Glucose (Fingerstick) 137 mg/dL (70-99) 124 mg/dL (70-99) 104 mg/dL (70-99) 147 mg/dL (70-99) Assessment and Plan Assessmemt and Plan Problems Medical Problems: (1) Elevated serum creatinine Status: Acute (2) Hypokalemia Status: Acute (3) Hyponatremia Status: Acute (4) Immunocompromised state due to drug therapy Status: Acute (5) Pneumonia due to COVID-19 virus Status: Acute (6) Respiratory failure with hypoxia Status: Acute Comment Review of Relevant I have reviewed the following items jaz (where applicable) has been applied. Medications: Current Medications Medications (Trade) Dose Ordered Sig/Carlos Route PRN Reason Start Time Stop Time Status Last Admin Dose Admin Remdesivir 200 mg/ Sodium Chloride 210 ml @ 210 mls/hr 1X ONCE IV 06/13/21 15:00 06/13/21 15:59 DC 06/13/21 14:34 Justifications for Admission Other Justification ROSINA PETIT MD Jun 14, 2021 13:28
[2021-06-14] MEDS: REMDESIVIR 100mg in NORMAL SALINE 250ML X 4 DAYS IV SCH (14:31)
[2021-06-14 15:00] VITALS: BP 114/53
[2021-06-14 19:00] VITALS: BP 145/70
[2021-06-14] MEDS: ATORVASTATIN CALCIUM 40 MG TABLET. PO SCH (21:24)
[2021-06-14] MEDS: NORTRIPTYLINE 25 MG CAPSULE PO SCH (21:24)
[2021-06-14 23:00] VITALS: BP 126/62
[2021-06-14] MEDS: traMADol 50 MG TABLET PO PRN (23:36)
[2021-06-15 03:00] VITALS: BP 116/44
[2021-06-15] MEDS: HEPARIN for SUB-Q USE 5,000 UNIT/ML VIAL. SQ SCH ×3 (06:21→22:01)
[2021-06-15 07:00] VITALS: BP 127/62
[2021-06-15 11:00] VITALS: BP 120/58
[2021-06-15] MEDS: SENNOSIDES/DOCUSATE 8.6/50MG TABLET. PO SCH ×2 (11:12→21:00)
[2021-06-15] MEDS: hydroCHLOROthiazide 12.5 MG CAPSULE PO SCH (11:13)
[2021-06-15] MEDS: LACTOBACILLUS RHAMNOSUS GG 1 CAPSULE. PO SCH (11:13)
[2021-06-15] MEDS: LOSARTAN POTASSIUM 50 MG TABLET. PO SCH (11:13)
[2021-06-15] MEDS: PANTOPRAZOLE 40 MG TABLET.DR. PO SCH (11:14)
[2021-06-15] MEDS: DEXAMETHASONE SOD PHOS 4 MG/ML VIAL IVP SCH (11:14)
[2021-06-15] MEDS: cefTRIAXone IV Push 1 GM VIAL. IVP SCH (11:15)
[2021-06-15] MEDS: CHOLECALCIFEROL (VITAMIN D3) 5,000 UNIT CAPSULE PO SCH (11:16)
--- NOTE | 2021-06-15 11:23 | PDOC ---
[facility] [facility] PROGRESS NOTE Date of Service DOS: DATE: 06/15/21 TIME: 11:21 Chief Complaint Chief Complaint Assessment/Plan Acute Hypoxic respiratory failure secondary to COVID-19 pneumonia, history of diabetes fibromyalgia hypertension hyperlipidemia rheumatoid arthritis on home Xeljanz -Presented with worsening respiratory symptoms to be Covid positive in emergency room -Start Covid treatment Rocephin doxy dexamethasone as needed cough medicine -Wean oxygen as tolerated -Patient says she is resumed Xeljanz in the past while having infection. Not on formulary here but she should be able to take her own supply -PT OT -Diabetic diet -DVT prophylaxis -Needs med rec History of Present Illness History of Present Illness 06/15/2021 Patient seen and examined Currently on 9 L of oxygen She is on day 2 of remdesivir Discussed with RN Discussed with case management Chart reviewed Remains quite ill 71-year-old female presented to the emergency room overnight 5-day history of fatigue cough congestion shortness of breath. Says her symptoms have been continually worsening. She has been Covid vaccinated. No test earlier this week she says it was negative. With the symptoms still worsening she decided to present to the hospital. While driving here she had some decreased consciousness in the car became alert again within a few seconds. When I evaluated her in the emergency room she was resting in bed on 2 L nasal cannula. She said her breathing was still a little bit labored but otherwise no complaints. 06/12/2021 No acute events overnight. Patient seen and examined bedside. Saturating 93% on 5 L nasal cannula. No dyspnea at this time. Patient's chart, labs, images were reviewed and discussed with RN 06/13/2021 No acute events overnight. Patient seen examined bedside. Saturating 92% on 5 L nasal cannula. Patient unable to tolerate 6-minute walk test. Needing at least 9 L of nasal cannula oxygen while exertion. Patient's chart, labs, images were reviewed and discussed with RN 06/14/2021 No acute events overnight. Patient seen examined bedside. Patient saturating 90% on 9 L nasal cannula. Will hold off on 6-minute walk test until O2 requirements have decreased. Otherwise not short of breath more than usual. Patient's chart, labs, images were reviewed and discussed with RN Vitals/I&O Vitals/I&O: Vital Signs Date Time Temp Pulse Resp B/P (MAP) Pulse Ox O2 Delivery O2 Flow Rate FiO2 2/2/22 11:13 107 127/62 06/15/21 07:00 97.8 20 90 Nasal Cannula 9.0 97.8 I & O 06/14/21 06/14/21 06/15/21 15:00 23:00 07:00 Intake Total 230 ml Balance 230 ml Physical Exam General: mild distress Heart: Regular rate Lungs: Clear Abdomen: Normal bowel sounds Extremities: No clubbing Skin: No rashes Labs Labs: Laboratory Tests Test 06/14/21 11:30 06/14/21 16:56 06/14/21 20:31 06/15/21 07:38 Glucose (Fingerstick) 147 mg/dL (70-99) 189 mg/dL (70-99) 165 mg/dL (70-99) 123 mg/dL (70-99) Assessment and Plan Assessmemt and Plan Problems Medical Problems: (1) Elevated serum creatinine Status: Acute (2) Hypokalemia Status: Acute (3) Hyponatremia Status: Acute (4) Immunocompromised state due to drug therapy Status: Acute (5) Pneumonia due to COVID-19 virus Status: Acute (6) Respiratory failure with hypoxia Status: Acute Covid-19 respiratory failure Pneumonia Diabetes Fibromyalgia Hypertension Hyperlipidemia RA Plan Covid protocol Remdesivir Steroids Vitamins Beta agonist Antibiotics (Rocephin and doxy) Oxygen Cough syrup Aspirin DVT prophylaxis Home meds Full code Trend labs Encourage p.o. intake Prognosis guarded Comment Review of Relevant I have reviewed the following items jaz (where applicable) has been applied. Medications: Current Medications Medications (Trade) Dose Ordered Sig/Carlos Route PRN Reason Start Time Stop Time Status Last Admin Dose Admin Remdesivir 100 mg/ Sodium Chloride 230 ml @ 460 mls/hr Q24H IV 06/14/21 15:00 06/17/21 15:29 06/14/21 14:31 Justifications for Admission Other Justification NAJMA TORRES III DO Jun 15, 2021 11:23
[2021-06-15] MEDS ORDERED: guaiFENesin/CODEINE 100mg/10mg 5 ML LIQUID PO PRN (11:30)
[2021-06-15] MEDS: DOXYCYCLINE HYCLATE 100 MG TABLET PO SCH ×2 (11:32→21:59)
--- NOTE | 2021-06-15 14:24 | NUR ---
SW following. Discussed with RN, pt from home with , requiring 9L oxygen, COVID-19 positive. Pt not medically stable for discharge. SW will continue to follow.
[2021-06-15 15:00] VITALS: BP 113/58
[2021-06-15] MEDS: ASPIRIN CHEWABLE 81 MG TABLET. PO SCH (16:57)
[2021-06-15] MEDS: REMDESIVIR 100mg in NORMAL SALINE 250ML X 4 DAYS IV SCH (16:58)
[2021-06-15 19:00] VITALS: BP 119/58
[2021-06-15] MEDS: NORTRIPTYLINE 25 MG CAPSULE PO SCH (21:59)
[2021-06-15] MEDS: ATORVASTATIN CALCIUM 40 MG TABLET. PO SCH (21:59)
[2021-06-15] MEDS: traMADol 50 MG TABLET PO PRN (22:16)
[2021-06-15 23:00] VITALS: BP 112/55
[2021-06-16 03:00] VITALS: BP 116/57
[2021-06-16] MEDS: HEPARIN for SUB-Q USE 5,000 UNIT/ML VIAL. SQ SCH ×3 (05:43→21:15)
[2021-06-16 07:00] VITALS: BP 134/57
[2021-06-16] MEDS: ASPIRIN CHEWABLE 81 MG TABLET. PO SCH (08:06)
[2021-06-16] MEDS: PANTOPRAZOLE 40 MG TABLET.DR. PO SCH (08:06)
[2021-06-16] MEDS: SENNOSIDES/DOCUSATE 8.6/50MG TABLET. PO SCH ×2 (09:00→21:08)
[2021-06-16] MEDS: CHOLECALCIFEROL (VITAMIN D3) 5,000 UNIT CAPSULE PO SCH (09:37)
[2021-06-16] MEDS: ACETAMINOPHEN 325 MG TABLET. PO PRN (09:37)
[2021-06-16] MEDS: hydroCHLOROthiazide 12.5 MG CAPSULE PO SCH (09:37)
[2021-06-16] MEDS: LOSARTAN POTASSIUM 50 MG TABLET. PO SCH (09:37)
[2021-06-16] MEDS: LACTOBACILLUS RHAMNOSUS GG 1 CAPSULE. PO SCH (09:37)
[2021-06-16] MEDS: DOXYCYCLINE HYCLATE 100 MG TABLET PO SCH ×2 (09:38→21:08)
[2021-06-16] MEDS: DEXAMETHASONE SOD PHOS 4 MG/ML VIAL IVP SCH (09:39)
[2021-06-16] MEDS: cefTRIAXone IV Push 1 GM VIAL. IVP SCH (10:07)
[2021-06-16 11:00] VITALS: BP 120/57
--- NOTE | 2021-06-16 12:04 | PDOC ---
[facility] [facility] PROGRESS NOTE Date of Service DOS: DATE: 06/16/21 TIME: 11:58 Chief Complaint Chief Complaint Assessment/Plan Acute Hypoxic respiratory failure secondary to COVID-19 pneumonia, history of diabetes fibromyalgia hypertension hyperlipidemia rheumatoid arthritis on home Xeljanz -Presented with worsening respiratory symptoms to be Covid positive in emergency room -Start Covid treatment Rocephin doxy dexamethasone as needed cough medicine -Wean oxygen as tolerated -Patient says she is resumed Xeljanz in the past while having infection. Not on formulary here but she should be able to take her own supply -PT OT -Diabetic diet -DVT prophylaxis -Needs med rec History of Present Illness History of Present Illness 06/16/2021: Patient seen and examined Chart reviewed. Discussed with RN. Patient is on Remdesivir Day #3 Patient requiring 9L of oxygen, via nasal cannula Patient resting in bed. 06/15/2021 Patient seen and examined Currently on 9 L of oxygen She is on day 2 of remdesivir Discussed with RN Discussed with case management Chart reviewed Remains quite ill 71-year-old female presented to the emergency room overnight 5-day history of fatigue cough congestion shortness of breath. Says her symptoms have been continually worsening. She has been Covid vaccinated. No test earlier this week she says it was negative. With the symptoms still worsening she decided to present to the hospital. While driving here she had some decreased consciousness in the car became alert again within a few seconds. When I evaluated her in the emergency room she was resting in bed on 2 L nasal cannula. She said her breathing was still a little bit labored but otherwise no complaints. 06/12/2021 No acute events overnight. Patient seen and examined bedside. Saturating 93% on 5 L nasal cannula. No dyspnea at this time. Patient's chart, labs, images were reviewed and discussed with RN 06/13/2021 No acute events overnight. Patient seen examined bedside. Saturating 92% on 5 L nasal cannula. Patient unable to tolerate 6-minute walk test. Needing at [place] 9 L of nasal cannula oxygen while exertion. Patient's chart, labs, images were reviewed and discussed with RN 06/14/2021 No acute events overnight. Patient seen examined bedside. Patient saturating 90% on 9 L nasal cannula. Will hold off on 6-minute walk test until O2 requirements have decreased. Otherwise not short of breath more than usual. Patient's chart, labs, images were reviewed and discussed with RN Vitals/I&O Vitals/I&O: Vital Signs Date Time Temp Pulse Resp B/P (MAP) Pulse Ox O2 Delivery O2 Flow Rate FiO2 06/16/21 09:37 96 134/57 06/16/21 08:16 Nasal Cannula 9.0 06/16/21 07:00 97.7 24 93 97.7 I & O 06/15/21 06/15/21 06/16/21 15:00 23:00 07:00 Intake Total 370 ml Balance 370 ml Physical Exam General: mild distress Heart: Regular rate Lungs: Clear Abdomen: Normal bowel sounds Extremities: No clubbing Skin: No rashes Labs Labs: Laboratory Tests Test 06/15/21 16:37 06/15/21 19:52 06/16/21 07:37 06/16/21 11:31 Glucose (Fingerstick) 180 mg/dL (70-99) 277 mg/dL (70-99) 124 mg/dL (70-99) 130 mg/dL (70-99) Assessment and Plan Assessmemt and Plan Problems Medical Problems: (1) Elevated serum creatinine Status: Acute (2) Hypokalemia Status: Acute (3) Hyponatremia Status: Acute (4) Immunocompromised state due to drug therapy Status: Acute (5) Pneumonia due to COVID-19 virus Status: Acute (6) Respiratory failure with hypoxia Status: Acute ASSESSMENT: Covid-19 respiratory failure Pneumonia Diabetes Fibromyalgia Hypertension Hyperlipidemia RA PLAN: 1. COVID protocol 2. Remdesivir (currently Day #3) 3. Steroids 4. Vitamins 5. Beta agonist 6. Antibiotics (Rocephin and doxy) 7. Oxygen, nasal cannula, currently on 9L 8. Cough syrup 9. Aspirin 10. Continue home meds medications 11. DVT prophylaxis 12. Encourage PO intake 13. Trend labs 14. DNR Comment Review of Relevant I have reviewed the following items jaz (where applicable) has been applied. Medications: Current Medications Medications (Trade) Dose Ordered Sig/Carlos Route PRN Reason Start Time Stop Time Status Last Admin Dose Admin Aspirin (Aspirin Chewable) 81 mg [id number] PO 06/15/21 12:30 06/16/21 08:06 Justifications for Admission Other Justification CASTDOLORES,NIAL K III DO Jun 16, 2021 12:04
[2021-06-16] MEDS: REMDESIVIR 100mg in NORMAL SALINE 250ML X 4 DAYS IV SCH (14:33)
[2021-06-16 15:00] VITALS: BP 110/62
[2021-06-16 19:00] VITALS: BP 131/47
[2021-06-16] MEDS: NORTRIPTYLINE 25 MG CAPSULE PO SCH (21:08)
[2021-06-16] MEDS: ATORVASTATIN CALCIUM 40 MG TABLET. PO SCH (21:08)
[2021-06-16] MEDS: traMADol 50 MG TABLET PO PRN (21:17)
[2021-06-16 23:04] VITALS: BP 123/64
[2021-06-17 03:19] VITALS: BP 116/57
[2021-06-17] MEDS: HEPARIN for SUB-Q USE 5,000 UNIT/ML VIAL. SQ SCH ×3 (05:32→21:14)
[2021-06-17 07:00] VITALS: BP 115/62
[2021-06-17] MEDS: PANTOPRAZOLE 40 MG TABLET.DR. PO SCH (08:10)
[2021-06-17] MEDS: LACTOBACILLUS RHAMNOSUS GG 1 CAPSULE. PO SCH (08:10)
[2021-06-17] MEDS: CHOLECALCIFEROL (VITAMIN D3) 5,000 UNIT CAPSULE PO SCH (08:10)
[2021-06-17] MEDS: DOXYCYCLINE HYCLATE 100 MG TABLET PO SCH ×2 (08:10→21:08)
[2021-06-17] MEDS: ASPIRIN CHEWABLE 81 MG TABLET. PO SCH (08:10)
[2021-06-17] MEDS: SENNOSIDES/DOCUSATE 8.6/50MG TABLET. PO SCH ×2 (08:11→21:15)
[2021-06-17] MEDS: DEXAMETHASONE SOD PHOS 4 MG/ML VIAL IVP SCH (08:11)
[2021-06-17] MEDS: hydroCHLOROthiazide 12.5 MG CAPSULE PO SCH (08:12)
[2021-06-17] MEDS: LOSARTAN POTASSIUM 50 MG TABLET. PO SCH (08:13)
[2021-06-17] MEDS: cefTRIAXone IV Push 1 GM VIAL. IVP SCH (10:51)
[2021-06-17 11:00] VITALS: BP 108/53
--- NOTE | 2021-06-17 11:36 | PDOC ---
[facility] [facility] PROGRESS NOTE Date of Service DOS: DATE: 06/17/21 TIME: 11:35 Chief Complaint Chief Complaint Assessment/Plan Acute Hypoxic respiratory failure secondary to COVID-19 pneumonia, history of diabetes fibromyalgia hypertension hyperlipidemia rheumatoid arthritis on home Xeljanz -Presented with worsening respiratory symptoms to be Covid positive in emergency room -Start Covid treatment Rocephin doxy dexamethasone as needed cough medicine -Wean oxygen as tolerated -Patient says she is resumed Xeljanz in the past while having infection. Not on formulary here but she should be able to take her own supply -PT OT -Diabetic diet -DVT prophylaxis -Needs med rec History of Present Illness History of Present Illness 06/17/2021 Patient seen and examined [place] discussed with RN Discussed with case management She is on day 5 remdesivir Still on 9 L of oxygen 06/16/2021: Patient seen and examined Chart reviewed. Discussed with RN. Patient is on Remdesivir Day #3 Patient requiring 9L of oxygen, via nasal cannula Patient resting in bed. 06/15/2021 Patient seen and examined Currently on 9 L of oxygen She is on day 2 of remdesivir Discussed with RN Discussed with case management Chart reviewed Remains quite ill 71-year-old female presented to the emergency room overnight 5-day history of fatigue cough congestion shortness of breath. Says her symptoms have been continually worsening. She has been Covid vaccinated. No test earlier this week she says it was negative. With the symptoms still worsening she decided to p resent to the hospital. While driving here she had some decreased consciousness in the car became alert again within a few seconds. When I evaluated her in the emergency room she was resting in bed on 2 L nasal cannula. She said her breathing was still a little bit labored but otherwise no complaints. 06/12/2021 No acute events overnight. Patient seen and examined bedside. Saturating 93% on 5 L nasal cannula. No dyspnea at this time. Patient's chart, labs, images were reviewed and discussed with RN 06/13/2021 No acute events overnight. Patient seen examined bedside. Saturating 92% on 5 L nasal cannula. Patient unable to tolerate 6-minute walk test. Needing at least 9 L of nasal cannula oxygen while exertion. Patient's chart, labs, images were reviewed and discussed with RN 06/14/2021 No acute events overnight. Patient seen examined bedside. Patient saturating 90% on 9 L nasal cannula. Will hold off on 6-minute walk test until O2 requirements have decreased. Otherwise not short of breath more than usual. Patient's chart, labs, images were reviewed and discussed with RN Vitals/I&O Vitals/I&O: Vital Signs Date Time Temp Pulse Resp B/P (MAP) Pulse Ox O2 Delivery O2 Flow Rate FiO2 06/17/21 08:30 Nasal Cannula 10.0 06/17/21 08:13 107 115/62 06/17/21 07:00 97.7 24 88 97.7 I & O 06/16/21 06/16/21 06/17/21 15:00 23:00 07:00 Intake Total 350 ml Output Total 300 ml Balance 350 ml -300 ml Physical Exam General: mild distress Heart: Regular rate Lungs: Clear Abdomen: Normal bowel sounds Extremities: No clubbing Skin: No rashes Labs Labs: Laboratory Tests Test 06/16/21 17:10 06/16/21 20:22 06/17/21 07:49 06/17/21 11:11 Glucose (Fingerstick) 167 mg/dL (70-99) 185 mg/dL (70-99) 113 mg/dL (70-99) 156 mg/dL (70-99) Assessment and Plan Assessmemt and Plan Problems Medical Problems: (1) Elevated serum creatinine Status: Acute (2) Hypokalemia Status: Acute (3) Hyponatremia Status: Acute (4) Immunocompromised state due to drug therapy Status: Acute (5) Pneumonia due to COVID-19 virus Status: Acute (6) Respiratory failure with hypoxia Status: Acute Covid-19 respiratory failure Pneumonia Diabetes Fibromyalgia Hypertension Hyperlipidemia RA PLAN: 1. COVID protocol 2. Remdesivir (currently Day #5) 3. Steroids 4. Vitamins 5. Beta agonist 6. Antibiotics (Rocephin and doxy) 7. Oxygen, nasal cannula, currently on 9L 8. Cough syrup 9. Aspirin 10. Continue home meds medications 11. DVT prophylaxis 12. Encourage PO intake 13. Trend labs 14. DNR Hope to discharge once she is weaned off the oxygen Comment Review of Relevant I have reviewed the following items jaz (where applicable) has been applied. Justifications for Admission Other Justification NAJMA TORRES III, DO Jun 17, 2021 11:36
[2021-06-17 15:00] VITALS: BP 120/60
[2021-06-17] MEDS: REMDESIVIR 100mg in NORMAL SALINE 250ML X 4 DAYS IV SCH (15:11)
[2021-06-17 19:00] VITALS: BP 125/70
[2021-06-17] MEDS: NORTRIPTYLINE 25 MG CAPSULE PO SCH (21:08)
[2021-06-17] MEDS: ATORVASTATIN CALCIUM 40 MG TABLET. PO SCH (21:08)
[2021-06-17] MEDS: traMADol 50 MG TABLET PO PRN (21:17)
[2021-06-17 23:04] VITALS: BP 117/66
[2021-06-18 03:22] VITALS: BP 125/76
[2021-06-18] MEDS: HEPARIN for SUB-Q USE 5,000 UNIT/ML VIAL. SQ SCH ×3 (06:01→20:54)
[2021-06-18 07:00] VITALS: BP 123/62
[2021-06-18] MEDS: PANTOPRAZOLE 40 MG TABLET.DR. PO SCH (08:56)
[2021-06-18] MEDS: LACTOBACILLUS RHAMNOSUS GG 1 CAPSULE. PO SCH (08:56)
[2021-06-18] MEDS: LOSARTAN POTASSIUM 50 MG TABLET. PO SCH (08:56)
[2021-06-18] MEDS: CHOLECALCIFEROL (VITAMIN D3) 5,000 UNIT CAPSULE PO SCH (08:56)
[2021-06-18] MEDS: SENNOSIDES/DOCUSATE 8.6/50MG TABLET. PO SCH ×3 (08:56→21:00)
[2021-06-18] MEDS: hydroCHLOROthiazide 12.5 MG CAPSULE PO SCH (08:56)
[2021-06-18] MEDS: ASPIRIN CHEWABLE 81 MG TABLET. PO SCH (08:56)
[2021-06-18] MEDS: DEXAMETHASONE SOD PHOS 4 MG/ML VIAL IVP SCH (08:59)
[2021-06-18] MEDS: ACETAMINOPHEN 325 MG TABLET. PO PRN (09:13)
--- NOTE | 2021-06-18 10:45 | PDOC ---
[facility] [facility] PROGRESS NOTE Date of Service DOS: DATE: 06/18/21 TIME: 10:43 Chief Complaint Chief Complaint Assessment/Plan Acute Hypoxic respiratory failure secondary to COVID-19 pneumonia, history of diabetes fibromyalgia hypertension hyperlipidemia rheumatoid arthritis on home Xeljanz -Presented with worsening respiratory symptoms to be Covid positive in emergency room -Start Covid treatment Rocephin doxy dexamethasone as needed cough medicine -Wean oxygen as tolerated -Patient says she is resumed Xeljanz in the past while having infection. Not on formulary here but she should be able to take her own supply -PT OT -Diabetic diet -DVT prophylaxis -Needs med rec History of Present Illness History of Present Illness 06/18/2021: Patient seen and examined. Chart reviewed. Discussed with RN. Patient resting in bed, alert and cooperative. Patient requiring 10L nasal cannula. Patient eating and voiding appropriately. Patient has completed Remdesivir. Patient has begun Decadron. 06/17/2021 Patient seen and examined [place] discussed with RN Discussed with case management She is on day 5 remdesivir Still on 9 L of oxygen 06/16/2021: Patient seen and examined Chart reviewed. Discussed with RN. Patient is on Remdesivir Day #3 Patient requiring 9L of oxygen, via nasal cannula Patient resting in bed. 06/15/2021 Patient seen and examined Currently on 9 L of oxygen She is on day 2 of remdesivir Discussed with RN Discussed with case management Chart reviewed Remains quite ill 71-year-old female presented to the emergency room overnight 5-day history of fatigue cough congestion shortness of breath. Says her symptoms have been continually worsening. She has been Covid vaccinated. No test earlier this week she says it was negative. With the symptoms still worsening she decided to present to the hospital. While driving here she had some decreased consciousness in the car became alert again within a few seconds. When I evaluated her in the emergency room she was resting in bed on 2 L nasal cannula. She said her breathing was still a little bit labored but otherwise no complaints. 06/12/2021 No acute events overnight. Patient seen and examined bedside. Saturating 93% on 5 L nasal cannula. No dyspnea at this time. Patient's chart, labs, images were reviewed and discussed with RN 06/13/2021 No acute events overnight. Patient seen examined bedside. Saturating 92% on 5 L nasal cannula. Patient unable to tolerate 6-minute walk test. Needing at least 9 L of nasal cannula oxygen while exertion. Patient's chart, labs, images were reviewed and discussed with RN 06/14/2021 No acute events overnight. Patient seen examined bedside. Patient saturating 90% on 9 L nasal cannula. Will hold off on 6-minute walk test until O2 requirements have decreased. Otherwise not short of breath more than usual. Patient's chart, labs, images were reviewed and discussed with RN Vitals/I&O Vitals/I&O: Vital Signs Date Time Temp Pulse Resp B/P (MAP) Pulse Ox O2 Delivery O2 Flow Rate FiO2 06/18/21 08:56 107 123/62 06/18/21 07:00 98.0 24 90 Nasal Cannula 98.0 06/17/21 21:15 9.0 I & O 06/17/21 06/17/21 06/18/21 15:00 23:00 07:00 Intake Total 230 ml Output Total 250 ml Balance 230 ml -250 ml Physical Exam General: Alert, Cooperative, mild distress Heart: Regular rate Lungs: Clear Abdomen: Normal bowel sounds Extremities: No clubbing Skin: No rashes Labs Labs: Laboratory Tests Test 06/17/21 11:11 06/17/21 17:01 06/17/21 20:25 06/18/21 07:52 Glucose (Fingerstick) 156 mg/dL (70-99) 175 mg/dL (70-99) 166 mg/dL (70-99) 135 mg/dL (70-99) Assessment and Plan Assessmemt and Plan Problems Medical Problems: (1) Elevated serum creatinine Status: Acute (2) Hypokalemia Status: Acute (3) Hyponatremia Status: Acute (4) Immunocompromised state due to drug therapy Status: Acute (5) Pneumonia due to COVID-19 virus Status: Acute (6) Respiratory failure with hypoxia Status: Acute ASSESSMENT: Covid-19 respiratory failure Pneumonia Diabetes Fibromyalgia Hypertension Hyperlipidemia RA PLAN: 1. Continue IV steroids, dexamethasone 2. Continue home medications 3. Continue PT/OT 4. Attempt to decrease oxygen needs, currently on 10L nasal cannula 5. DVT prophylaxis 6. Encourage PO intake 7. Trend labs 8. DNR 9. Hope to discharge once patient requires minimal oxygen. Comment Review of Relevant I have reviewed the following items jaz (where applicable) has been applied. Justifications for Admission Other Justification CASTLE,NIAL K III DO Jun 18, 2021 10:45
[2021-06-18 11:00] VITALS: BP 121/60
[2021-06-18 15:00] VITALS: BP 123/62
[2021-06-18 19:00] VITALS: BP 126/65
[2021-06-18] MEDS: ATORVASTATIN CALCIUM 40 MG TABLET. PO SCH (20:53)
[2021-06-18] MEDS: NORTRIPTYLINE 25 MG CAPSULE PO SCH (20:53)
[2021-06-18] MEDS: traMADol 50 MG TABLET PO PRN (21:47)
[2021-06-18 23:51] VITALS: BP 117/67
[2021-06-19 03:00] VITALS: BP 114/56
[2021-06-19] MEDS: HEPARIN for SUB-Q USE 5,000 UNIT/ML VIAL. SQ SCH ×3 (05:21→21:21)
[2021-06-19 07:00] VITALS: BP 126/66
[2021-06-19] MEDS: hydroCHLOROthiazide 12.5 MG CAPSULE PO SCH (08:19)
[2021-06-19] MEDS: ASPIRIN CHEWABLE 81 MG TABLET. PO SCH (08:19)
[2021-06-19] MEDS: LOSARTAN POTASSIUM 50 MG TABLET. PO SCH (08:19)
[2021-06-19] MEDS: PANTOPRAZOLE 40 MG TABLET.DR. PO SCH (08:19)
[2021-06-19] MEDS: SENNOSIDES/DOCUSATE 8.6/50MG TABLET. PO SCH ×2 (08:19→21:00)
[2021-06-19] MEDS: CHOLECALCIFEROL (VITAMIN D3) 5,000 UNIT CAPSULE PO SCH (08:19)
[2021-06-19] MEDS: LACTOBACILLUS RHAMNOSUS GG 1 CAPSULE. PO SCH (08:19)
[2021-06-19] MEDS: DEXAMETHASONE SOD PHOS 4 MG/ML VIAL IVP SCH (08:20)
[2021-06-19 08:28] LABS: CALCIUM 9.9 mg/dL (8.5-10.1); CREATININE 1.2 mg/dL (0.6-1.0); GFR 44.3; POTASSIUM 4.4 mmol/L (3.5-5.1)
[2021-06-19 11:00] VITALS: BP 116/60
--- NOTE | 2021-06-19 11:53 | PDOC ---
[employer] PROGRESS NOTE Date of Service DOS: DATE: 06/19/21 TIME: 11:50 Chief Complaint Chief Complaint Assessment/Plan COVID-19 respiratory failure and pneumonia PMH: Diabetes Fibromyalgia HTN Hyperlipidemia RA History of Present Illness History of Present Illness 06/18/2021: Patient seen and examined. Chart reviewed. Discussed with RN Patient on 10 L NC at 91% 06/18/2021: Patient seen and examined. Chart reviewed. Discussed with RN. Patient resting in bed, alert and cooperative. Patient requiring 10L nasal cannula. Patient eating and voiding appropriately. Patient has completed Remdesivir. Patient has begun Decadron. 06/17/2021 Patient seen and examined [place] discussed with RN Discussed with case management She is on day 5 remdesivir Still on 9 L of oxygen 06/16/2021: Patient seen and examined Chart reviewed. Discussed with RN. Patient is on Remdesivir Day #3 Patient requiring 9L of oxygen, via nasal cannula Patient resting in bed. 06/15/2021 Patient seen and examined Currently on 9 L of oxygen She is on day 2 of remdesivir Discussed with RN Discussed with case management Chart reviewed Remains quite ill 71-year-old female presented to the emergency room overnight 5-day history of fatigue cough congestion shortness of breath. Says her symptoms have been continually worsening. She has been Covid vaccinated. No test earlier this week she says it was negative. With the symptoms still worsening she decided to present to the hospital. While driving here she had some decreased consciousness in the car became alert again within a few seconds. When I evaluated her in the emergency room she was resting in bed on 2 L nasal cannula. She said her breathing was still a little bit labored but otherwise no complaints. 06/12/2021 No acute events overnight. Patient seen and examined bedside. Saturating 93% on 5 L nasal cannula. No dyspnea at this time. Patient's chart, labs, images were reviewed and discussed with RN 06/13/2021 No acute events overnight. Patient seen examined bedside. Saturating 92% on 5 L nasal cannula. Patient unable to tolerate 6-minute walk test. Needing at least 9 L of nasal cannula oxygen while exertion. Patient's chart, labs, images were reviewed and discussed with RN 06/14/2021 No acute events overnight. Patient seen examined bedside. Patient saturating 90% on 9 L nasal cannula. Will hold off on 6-minute walk test until O2 requirements have decreased. Otherwise not short of breath more than usual. Patient's chart, labs, images were reviewed and discussed with RN Vitals/I&O Vitals/I&O: Vital Signs Date Time Temp Pulse Resp B/P (MAP) Pulse Ox O2 Delivery O2 Flow Rate FiO2 06/19/21 08:19 101 126/66 06/19/21 07:36 Nasal Cannula 10.0 06/19/21 07:00 97.4 18 91 97.4 I & O 06/18/21 06/18/21 06/19/21 15:00 23:00 07:00 Intake Total 540 ml 60 ml Output Total 200 ml Balance 340 ml 60 ml Physical Exam General: Alert, Cooperative, mild distress Heart: Regular rate Lungs: Clear Abdomen: Normal bowel sounds Extremities: No clubbing Skin: No rashes Labs Labs: Laboratory Tests Test 06/18/21 16:30 06/18/21 21:21 06/19/21 06:45 06/19/21 08:02 Glucose (Fingerstick) 200 mg/dL (70-99) 231 mg/dL (70-99) 170 mg/dL (70-99) Sodium Level 136 mmol/L (136-145) Potassium Level 4.4 mmol/L (3.5-5.1) Chloride Level 99 mmol/L (98-107) Carbon Dioxide Level 19 mmol/L (21-32) Anion Gap 18 (6-14) Blood Urea Nitrogen 56 mg/dL (7-20) Creatinine 1.2 mg/dL (0.6-1.0) Estimated GFR (Cockcroft-Gault) 44.3 Glucose Level 171 mg/dL (70-99) Calcium Level 9.9 mg/dL (8.5-10.1) Assessment and Plan Assessmemt and Plan Problems Medical Problems: (1) Elevated serum creatinine Status: Acute (2) Hypokalemia Status: Acute (3) Hyponatremia Status: Acute (4) Immunocompromised state due to drug therapy Status: Acute (5) Pneumonia due to COVID-19 virus Status: Acute (6) Respiratory failure with hypoxia Status: Acute ASSESSMENT: Covid-19 respiratory failure Pneumonia Diabetes Fibromyalgia HTN Hyperlipidemia RA PLAN: 1. Continue COVID protocol - decadron; patient has already finished course of remdesivir 2. Continue home medications 3. Continue PT/OT 4. Attempt to decrease oxygen needs, currently on 10L nasal cannula 5. DVT prophylaxis 6. Encourage PO intake 7. Trend labs 8. DNR Comment Review of Relevant I have reviewed the following items jaz (where applicable) has been applied. Justifications for Admission Other Justification NAJMA TORRES III DO Jun 19, 2021 11:53
[2021-06-19] MEDS ORDERED: DEXTROSE 50% 25 GM / 50ML DISP.SYRIN. IV PRN (13:15)
[2021-06-19 15:00] VITALS: BP 114/62
[2021-06-19] MEDS: INSULIN LISPRO 300 UNITS/3 ML VIAL. SQ SCH (16:55)
[2021-06-19 19:00] VITALS: BP 143/61
[2021-06-19] MEDS: NORTRIPTYLINE 25 MG CAPSULE PO SCH (21:21)
[2021-06-19] MEDS: ATORVASTATIN CALCIUM 40 MG TABLET. PO SCH (21:21)
[2021-06-19 23:00] VITALS: BP 133/64
[2021-06-20 03:00] VITALS: BP 114/60
[2021-06-20] MEDS: HEPARIN for SUB-Q USE 5,000 UNIT/ML VIAL. SQ SCH ×3 (05:18→21:31)
[2021-06-20 07:00] VITALS: BP 161/70
[2021-06-20] MEDS: PANTOPRAZOLE 40 MG TABLET.DR. PO SCH (07:47)
[2021-06-20] MEDS: ASPIRIN CHEWABLE 81 MG TABLET. PO SCH (07:47)
[2021-06-20] MEDS: INSULIN LISPRO 300 UNITS/3 ML VIAL. SQ SCH ×4 (08:44→17:00)
[2021-06-20] MEDS: SENNOSIDES/DOCUSATE 8.6/50MG TABLET. PO SCH ×2 (09:00→22:07)
[2021-06-20] MEDS: LACTOBACILLUS RHAMNOSUS GG 1 CAPSULE. PO SCH (09:14)
[2021-06-20] MEDS: CHOLECALCIFEROL (VITAMIN D3) 5,000 UNIT CAPSULE PO SCH (09:14)
[2021-06-20] MEDS: hydroCHLOROthiazide 12.5 MG CAPSULE PO SCH (09:15)
[2021-06-20] MEDS: DEXAMETHASONE SOD PHOS 4 MG/ML VIAL IVP SCH (09:15)
[2021-06-20] MEDS: LOSARTAN POTASSIUM 50 MG TABLET. PO SCH (09:15)
--- NOTE | 2021-06-20 10:36 | PDOC ---
[employer] PROGRESS NOTE Date of Service DOS: DATE: 06/20/21 TIME: 10:35 Chief Complaint Chief Complaint Assessment/Plan COVID-19 respiratory failure and pneumonia PMH: Diabetes Fibromyalgia HTN Hyperlipidemia RA History of Present Illness History of Present Illness 06/20/2021: Patient seen and examined. Chart reviewed. Discussed with RN Patient on 10 L NC at 87% - attempting to titrate down oxygen 06/19/2021: Patient seen and examined. Chart reviewed. Discussed with RN Patient on 10 L NC at 91% 06/18/2021: Patient seen and examined. Chart reviewed. Discussed with RN. Patient resting in bed, alert and cooperative. Patient requiring 10L nasal cannula. Patient eating and voiding appropriately. Patient has completed Remdesivir. Patient has begun Decadron. 06/17/2021 Patient seen and examined [place] discussed with RN Discussed with case management She is on day 5 remdesivir Still on 9 L of oxygen 06/16/2021: Patient seen and examined Chart reviewed. Discussed with RN. Patient is on Remdesivir Day #3 Patient requiring 9L of oxygen, via nasal cannula Patient resting in bed. 06/15/2021 Patient seen and examined Currently on 9 L of oxygen She is on day 2 of remdesivir Discussed with RN Discussed with case management Chart reviewed Remains quite ill 71-year-old female presented to the emergency room overnight 5-day history of fatigue cough congestion shortness of breath. Says her symptoms have been continually worsening. She has been Covid vaccinated. No test earlier this week she says it was negative. With the symptoms still worsening she decided to present to the hospital. While driving here she had some decreased consciousness in the car became alert again within a few seconds. When I evaluated her in the emergency room she was resting in bed on 2 L nasal cannula. She said her breathing was still a little bit labored but otherwise no complaints. 06/12/2021 No acute events overnight. Patient seen and examined bedside. Saturating 93% on 5 L nasal cannula. No dyspnea at this time. Patient's chart, labs, images were reviewed and discussed with RN 06/13/2021 No acute events overnight. Patient seen examined bedside. Saturating 92% on 5 L nasal cannula. Patient unable to tolerate 6-minute walk test. Needing at least 9 L of nasal cannula oxygen while exertion. Patient's chart, labs, images were reviewed and discussed with RN 06/14/2021 No acute events overnight. Patient seen examined bedside. Patient saturating 90% on 9 L nasal cannula. Will hold off on 6-minute walk test until O2 requirements have decreased. Otherwise not short of breath more than usual. Patient's chart, labs, images were reviewed and discussed with RN Vitals/I&O Vitals/I&O: Vital Signs Date Time Temp Pulse Resp B/P (MAP) Pulse Ox O2 Delivery O2 Flow Rate FiO2 06/20/21 09:15 114 161/70 06/20/21 07:58 Nasal Cannula 10.0 06/20/21 07:00 97.4 88 97.4 06/20/21 03:00 20 I & O 06/19/21 06/19/21 06/20/21 15:00 23:00 07:00 Intake Total 200 ml 60 ml Balance 200 ml 60 ml Physical Exam General: Alert, Cooperative, mild distress Heart: Regular rate Lungs: Clear Abdomen: Normal bowel sounds Extremities: No clubbing Skin: No rashes Labs Labs: Laboratory Tests Test 06/19/21 12:22 06/19/21 16:50 06/19/21 20:35 06/20/21 08:03 Glucose (Fingerstick) 221 mg/dL (70-99) 264 mg/dL (70-99) 239 mg/dL (70-99) 195 mg/dL (70-99) Assessment and Plan Assessmemt and Plan Problems Medical Problems: (1) Elevated serum creatinine Status: Acute (2) Hypokalemia Status: Acute (3) Hyponatremia Status: Acute (4) Immunocompromised state due to drug therapy Status: Acute (5) Pneumonia due to COVID-19 virus Status: Acute (6) Respiratory failure with hypoxia Status: Acute ASSESSMENT: Covid-19 respiratory failure Pneumonia Diabetes Fibromyalgia HTN Hyperlipidemia RA PLAN: 1. Continue COVID protocol - decadron; patient has already finished course of remdesivir 2. Continue home medications 3. Continue PT/OT 4. titrate down Oxygen 5. DVT prophylaxis 6. Encourage PO intake 7. Trend labs 8. DNR Comment Review of Relevant I have reviewed the following items jaz (where applicable) has been applied. Medications: Current Medications Medications (Trade) Dose Ordered Sig/Carlos Route PRN Reason Start Time Stop Time Status Last Admin Dose Admin Insulin Human Lispro (HumaLOG) 0-4 UNITS TIDWMEALS SQ 06/19/21 17:00 06/20/21 08:44 Justifications for Admission Other Justification NAJMA TORRES III DO Jun 20, 2021 10:36
[2021-06-20 11:00] VITALS: BP 127/63
[2021-06-20 15:00] VITALS: BP 108/57
--- NOTE | 2021-06-20 17:07 | NUR ---
Pt's dinner FSBS 315. This RN notified Dr. Rodriguez by telephone. Dr. Rodriguez stated he would place orders. Will await orders.
[2021-06-20] MEDS ORDERED: INSULIN LISPRO 300 UNITS/3 ML VIAL. SQ ONE (17:45)
[2021-06-20 19:00] VITALS: BP 102/50
[2021-06-20] MEDS: ATORVASTATIN CALCIUM 40 MG TABLET. PO SCH (21:30)
[2021-06-20] MEDS: NORTRIPTYLINE 25 MG CAPSULE PO SCH (21:30)
[2021-06-20] MEDS: INSULIN GLARGINE SYRINGE. SQ SCH (21:30)
[2021-06-20 23:00] VITALS: BP 126/64
[2021-06-21 03:00] VITALS: BP 143/66
[2021-06-21] MEDS: HEPARIN for SUB-Q USE 5,000 UNIT/ML VIAL. SQ SCH ×3 (06:33→22:27)
[2021-06-21 07:00] VITALS: BP 168/76
[2021-06-21] MEDS: PANTOPRAZOLE 40 MG TABLET.DR. PO SCH (07:47)
[2021-06-21] MEDS: INSULIN LISPRO 300 UNITS/3 ML VIAL. SQ SCH ×6 (08:32→17:12)
[2021-06-21] MEDS: ASPIRIN CHEWABLE 81 MG TABLET. PO SCH (08:34)
[2021-06-21] MEDS: CHOLECALCIFEROL (VITAMIN D3) 5,000 UNIT CAPSULE PO SCH (08:59)
[2021-06-21] MEDS: LACTOBACILLUS RHAMNOSUS GG 1 CAPSULE. PO SCH (08:59)
[2021-06-21] MEDS: LOSARTAN POTASSIUM 50 MG TABLET. PO SCH (09:00)
[2021-06-21] MEDS: SENNOSIDES/DOCUSATE 8.6/50MG TABLET. PO SCH ×2 (09:00→21:00)
[2021-06-21] MEDS: DEXAMETHASONE SOD PHOS 4 MG/ML VIAL IVP SCH (09:00)
[2021-06-21] MEDS: hydroCHLOROthiazide 12.5 MG CAPSULE PO SCH (09:00)
--- NOTE | 2021-06-21 10:17 | PDOC ---
[employer] PROGRESS NOTE Date of Service DOS: DATE: 06/21/21 TIME: 10:15 Chief Complaint Chief Complaint Assessment/Plan COVID-19 respiratory failure and pneumonia PMH: Diabetes Fibromyalgia HTN Hyperlipidemia RA History of Present Illness History of Present Illness 06/21/2021: Patient seen and examined. Chart reviewed. Discussed with RN Discussed with case management Patient now on 15 L non-rebreather mask - oxygen requirements still too high to D/C her home Hoping to D/C patient to LTAC if they approve her 06/20/2021: Patient seen and examined. Chart reviewed. Discussed with RN Patient on 10 L NC at 87% - attempting to titrate down oxygen 06/19/2021: Patient seen and examined. Chart reviewed. Discussed with RN Patient on 10 L NC at 91% 06/18/2021: Patient seen and examined. Chart reviewed. Discussed with RN. Patient resting in bed, alert and cooperative. Patient requiring 10L nasal cannula. Patient eating and voiding appropriately. Patient has completed Remdesivir. Patient has begun Decadron. 06/17/2021 Patient seen and examined [place] discussed with RN Discussed with case management She is on day 5 remdesivir Still on 9 L of oxygen 06/16/2021: Patient seen and examined Chart reviewed. Discussed with RN. Patient is on Remdesivir Day #3 Patient requiring 9L of oxygen, via nasal cannula Patient resting in bed. 06/15/2021 Patient seen and examined Currently on 9 L of oxygen She is on day 2 of remdesivir Discussed with RN Discussed with case management Chart reviewed Remains quite ill 71-year-old female presented to the emergency room overnight 5-day history of fatigue cough congestion shortness of breath. Says her symptoms have been continually worsening. She has been Covid vaccinated. No test earlier this week she says it was negative. With the symptoms still worsening she decided to present to the hospital. While driving here she had some decreased consciousness in the car became alert again within a few seconds. When I evaluated her in the emergency room she was resting in bed on 2 L nasal cannula. She said her breathing was still a little bit labored but otherwise no complaints. 06/12/2021 No acute events overnight. Patient seen and examined bedside. Saturating 93% on 5 L nasal cannula. No dyspnea at this time. Patient's chart, labs, images were reviewed and discussed with RN 06/13/2021 No acute events overnight. Patient seen examined bedside. Saturating 92% on 5 L nasal cannula. Patient unable to tolerate 6-minute walk test. Needing at least 9 L of nasal cannula oxygen while exertion. Patient's chart, labs, images were reviewed and discussed with RN 06/14/2021 No acute events overnight. Patient seen examined bedside. Patient saturating 90% on 9 L nasal cannula. Will hold off on 6-minute walk test until O2 requirements have decreased. Otherwise not short of breath more than usual. Patient's chart, labs, images were reviewed and discussed with RN Vitals/I&O Vitals/I&O: Vital Signs Date Time Temp Pulse Resp B/P (MAP) Pulse Ox O2 Delivery O2 Flow Rate FiO2 06/21/21 09:00 115 168/76 06/21/21 07:52 Non-Rebreather 15.0 06/21/21 07:00 97.6 97.6 06/21/21 03:00 30 97 I & O 06/20/21 06/20/21 06/21/21 15:00 23:00 07:00 Output Total 0 ml 100 ml Balance 0 ml -100 ml Physical Exam General: Alert, Cooperative, mild distress Heart: Regular rate Lungs: Clear Abdomen: Normal bowel sounds Extremities: No clubbing Skin: No rashes Labs Labs: Laboratory Tests Test 06/20/21 12:19 06/20/21 17:01 06/20/21 20:52 06/21/21 08:01 Glucose (Fingerstick) 277 mg/dL (70-99) 315 mg/dL (70-99) 304 mg/dL (70-99) 260 mg/dL (70-99) Assessment and Plan Assessmemt and Plan Problems Medical Problems: (1) Elevated serum creatinine Status: Acute (2) Hypokalemia Status: Acute (3) Hyponatremia Status: Acute (4) Immunocompromised state due to drug therapy Status: Acute (5) Pneumonia due to COVID-19 virus Status: Acute (6) Respiratory failure with hypoxia Status: Acute ASSESSMENT: Covid-19 respiratory failure Pneumonia Diabetes Fibromyalgia HTN Hyperlipidemia RA PLAN: 1. Continue COVID protocol - decadron; patient has already finished course of remdesivir and antibiotics 2. Continue home medications 3. Continue PT/OT 4. Titrate down Oxygen - still high levels 5. DVT prophylaxis 6. Encourage PO intake 7. Trend labs 8. DNR 9. Patient planning to be discharged to LTAC if they approve her Comment Review of Relevant I have reviewed the following items jaz (where applicable) has been applied. Medications: Current Medications Medications (Trade) Dose Ordered Sig/Carlos Route PRN Reason Start Time Stop Time Status Last Admin Dose Admin Insulin Human Lispro (HumaLOG) 10 units 1X ONCE SQ 06/20/21 17:45 06/20/21 17:46 DC 06/20/21 17:46 Insulin Glargine (Lantus Syringe) 10 unit QHS SQ 06/20/21 21:00 06/20/21 21:30 Insulin Human Lispro (HumaLOG) 5 units TIDAC SQ 06/21/21 07:30 06/21/21 08:33 Justifications for Admission Other Justification NAJMA TORRES III DO Jun 21, 2021 10:17
[2021-06-21 11:00] VITALS: BP 140/76
[2021-06-21 15:00] VITALS: BP 135/69
[2021-06-21 19:00] VITALS: BP 157/73
[2021-06-21] MEDS: INSULIN GLARGINE SYRINGE. SQ SCH (21:00)
[2021-06-21] MEDS: NORTRIPTYLINE 25 MG CAPSULE PO SCH (22:26)
[2021-06-21] MEDS: ATORVASTATIN CALCIUM 40 MG TABLET. PO SCH (22:26)
[2021-06-21 23:00] VITALS: BP 134/55
[2021-06-22 03:00] VITALS: BP 155/72
[2021-06-22] MEDS: HEPARIN for SUB-Q USE 5,000 UNIT/ML VIAL. SQ SCH ×2 (06:46→14:30)
[2021-06-22 07:00] VITALS: BP 140/66
--- NOTE | 2021-06-22 08:06 | PDOC ---
[employer] PROGRESS NOTE Date of Service DOS: DATE: 06/22/21 TIME: 08:04 Chief Complaint Chief Complaint Assessment/Plan COVID-19 respiratory failure and pneumonia PMH: Diabetes Fibromyalgia HTN Hyperlipidemia RA History of Present Illness History of Present Illness 06/22/2021: Patient seen and examined. Chart reviewed. Discussed with RN Discussed with case management Still trying to titrate down the patients oxygen; patient on 15L non-rebreather mask at 93%; patient was previously using NC and non-breather so now the NC has been removed LTAC evaluation in progress 06/21/2021: Patient seen and examined. Chart reviewed. Discussed with RN Discussed with case management Patient now on 15 L non-rebreather mask - oxygen requirements still too high to D/C her home Hoping to D/C patient to LTAC if they approve her 06/20/2021: Patient seen and examined. Chart reviewed. Discussed with RN Patient on 10 L NC at 87% - attempting to titrate down oxygen 06/19/2021: Patient seen and examined. Chart reviewed. Discussed with RN Patient on 10 L NC at 91% 06/18/2021: Patient seen and examined. Chart reviewed. Discussed with RN. Patient resting in bed, alert and cooperative. Patient requiring 10L nasal cannula. Patient eating and voiding appropriately. Patient has completed Remdesivir. Patient has begun Decadron. 06/17/2021 Patient seen and examined [place] discussed with RN Discussed with case management She is on day 5 remdesivir Still on 9 L of oxygen 06/16/2021: Patient seen and examined Chart reviewed. Discussed with RN. Patient is on Remdesivir Day #3 Patient requiring 9L of oxygen, via nasal cannula Patient resting in bed. 06/15/2021 Patient seen and examined Currently on 9 L of oxygen She is on day 2 of remdesivir Discussed with RN Discussed with case management Chart reviewed Remains quite ill 71-year-old female presented to the emergency room overnight 5-day history of fatigue cough congestion shortness of breath. Says her symptoms have been continually worsening. She has been Covid vaccinated. No test earlier this week she says it was negative. With the symptoms still worsening she decided to present to the hospital. While driving here she had some decreased consciousness in the car became alert again within a few seconds. When I evaluated her in the emergency room she was resting in bed on 2 L nasal cannula. She said her breathing was still a little bit labored but otherwise no complaints. 06/12/2021 No acute events overnight. Patient seen and examined bedside. Saturating 93% on 5 L nasal cannula. No dyspnea at this time. Patient's chart, labs, images were reviewed and discussed with RN 06/13/2021 No acute events overnight. Patient seen examined bedside. Saturating 92% on 5 L nasal cannula. Patient unable to tolerate 6-minute walk test. Needing at least 9 L of nasal cannula oxygen while exertion. Patient's chart, labs, images were reviewed and discussed with RN 06/14/2021 No acute events overnight. Patient seen examined bedside. Patient saturating 90% on 9 L nasal cannula. Will hold off on 6-minute walk test until O2 requirements have decreased. Otherwise not short of breath more than usual. Patient's chart, labs, images were reviewed and discussed with RN Vitals/I&O Vitals/I&O: Vital Signs Date Time Temp Pulse Resp B/P (MAP) Pulse Ox O2 Delivery O2 Flow Rate FiO2 06/22/21 03:00 97.9 102 24 155/72 (99) 93 NonRebreather Mask 15.0 97.9 I & O 06/21/21 06/21/21 06/22/21 15:00 23:00 07:00 Intake Total 250 ml Output Total 250 ml Balance 250 ml -250 ml Physical Exam General: Alert, Cooperative, mild distress Heart: Regular rate Lungs: Clear Abdomen: Normal bowel sounds Extremities: No clubbing Skin: No rashes Labs Labs: Laboratory Tests Test 06/21/21 12:09 06/21/21 17:06 06/21/21 20:12 06/22/21 07:43 Glucose (Fingerstick) 216 mg/dL (70-99) 210 mg/dL (70-99) 189 mg/dL (70-99) 210 mg/dL (70-99) Assessment and Plan Assessmemt and Plan Problems Medical Problems: (1) Elevated serum creatinine Status: Acute (2) Hypokalemia Status: Acute (3) Hyponatremia Status: Acute (4) Immunocompromised state due to drug therapy Status: Acute (5) Pneumonia due to COVID-19 virus Status: Acute (6) Respiratory failure with hypoxia Status: Acute ASSESSMENT: Covid-19 respiratory failure Pneumonia Diabetes Fibromyalgia HTN Hyperlipidemia RA PLAN: 1. Continue COVID protocol - oxygen supplementation; patient has completed course of antibiotics, remdesivir, and steroids 2. Continue home medications 3. Continue PT/OT 4. Titrate down oxygen; patient on 15L non-rebreather mask at 93%; patient was previously using NC and non-breather so now the NC has been removed 5. DVT prophylaxis 6. Encourage PO intake 7. Trend labs 8. DNR 9. LTAC evaluation in progress Comment Review of Relevant I have reviewed the following items jaz (where applicable) has been applied. Justifications for Admission Other Justification NAJMA TORRES III DO Jun 22, 2021 08:06
[2021-06-22] MEDS: PANTOPRAZOLE 40 MG TABLET.DR. PO SCH (08:38)
[2021-06-22] MEDS: hydroCHLOROthiazide 12.5 MG CAPSULE PO SCH (08:38)
[2021-06-22] MEDS: LACTOBACILLUS RHAMNOSUS GG 1 CAPSULE. PO SCH (08:38)
[2021-06-22] MEDS: ASPIRIN CHEWABLE 81 MG TABLET. PO SCH (08:38)
[2021-06-22] MEDS: CHOLECALCIFEROL (VITAMIN D3) 5,000 UNIT CAPSULE PO SCH (08:38)
[2021-06-22] MEDS: SENNOSIDES/DOCUSATE 8.6/50MG TABLET. PO SCH (08:38)
[2021-06-22] MEDS: LOSARTAN POTASSIUM 50 MG TABLET. PO SCH (08:39)
[2021-06-22] MEDS: INSULIN LISPRO 300 UNITS/3 ML VIAL. SQ SCH ×6 (08:39→17:00)
[2021-06-22 11:00] VITALS: BP 145/62
[2021-06-22 15:00] VITALS: BP 134/61
--- NOTE | 2021-06-22 15:23 | SNU/HH DC ---
DISCHARGE ORDERS DISCHARGE INFORMATION: FINAL DIAGNOSIS Problems Medical Problems: (1) Elevated serum creatinine Status: Acute (2) Hypokalemia Status: Acute (3) Hyponatremia Status: Acute (4) Immunocompromised state due to drug therapy Status: Acute (5) Pneumonia due to COVID-19 virus Status: Acute (6) Respiratory failure with hypoxia Status: Acute CONDITION ON DISCHARGE: Stable CODE STATUS: Code Status: DNR/DNI RETIREMENT: SNF STAY <30 DAYS: No HOSPICE: HOSPICE: No HOSPICE EVAL & TREAT: No LTAC: ADMIT TO LTAC: Yes POST DISCHARGE ORDERS: ACTIVITY ORDERS: Bedrest today WEIGHT BEARING STATUS: Full weight bearing DIET AFTER DISCHARGE: Cardiac OTHER ORDERS: See attached printed medication sheets TREATMENT/EQUIPMENT ORDERS: Physical Therapy For: Evalulation/Treatment Occupational Therapy For: Evaluation/Treatment DISCHARGE MEDICATIONS: Home Meds Reported Medications Lactobacillus Acidophilus (PROBIOTIC) 1 Each Capsule, 1 CAP PO DAILY for suppl ement for 10 Days, #10 CAP 0 Refills 06/11/21 Tramadol Hcl (TRAMADOL HCL) 50 Mg Tablet, 50 MG PO Q4HRS PRN for PAIN, TAB 06/11/21 Cholecalciferol (Vitamin D3) (Vitamin D3 ) 125 Mcg Capsule, 125 MCG PO DAILY for SUPPLEMENT, CAP 5,000 UNITS = 125 MCG 06/11/21 Tofacitinib Citrate (Xeljanz Xr) 11 Mg Tab.er.24h, 11 MG PO DAILY for RA, TAB.SR 06/11/21 Nortriptyline Hcl (NORTRIPTYLINE HCL) 25 Mg Capsule, 1 CAP PO QHS for fibr omyalgia, #30 CAP 3 Refills 06/11/21 Omeprazole (OMEPRAZOLE) 20 Mg Capsule.dr, 1 CAP PO DAILY for GERD, #30 CAP 5 Refills 06/11/21 Celecoxib (CELEBREX) 200 Mg Capsule, 1 CAP PO DAILY for inflammation, #30 CAP 2 Refills 06/11/21 Irbesartan/Hydrochlorothiazide (IRBESARTAN-HCTZ 150-12.5 MG TB) 1 Each Tablet, 1 EACH PO DAILY for hypertension, TAB 06/11/21 Metformin Hcl (METFORMIN HCL) 500 Mg Tablet, 2 TAB PO BIDWMEALS for ANTI-D IABETIC, TAB 0 Refills 06/11/21 Atorvastatin Calcium (ATORVASTATIN CALCIUM) 40 Mg Tablet, 1 TAB PO DAILY for hyperlipidemia, #30 TAB 5 Refills 1/29/22 Milnacipran Hcl (SAVELLA) 50 Mg Tablet, 1 TAB PO BID for fibromyalgia, #60 TAB 2 Refills 06/11/21 NAJMA TORRES III DO Jun 22, 2021 15:22
--- NOTE | 2021-06-22 18:16 | NUR ---
Discharge Note: PT DISCHARGED TO [facility]. PT LEFT FACILITY VIA [facility] AT 1815. PT STABLE AND ALERT UPON DISCHARGE. PT PIV'S REMOVED FROM R/L AC WITHOUT COMPLICATIONS, BANDAGES APPLIED. REPORT CALLED TO GAVIN BAIRD AT 1800. NO CONCERNS VOICED. PT LEFT WITH ALL PERSONAL BELONGINGS. RAMY FIG[facility]EROA [facility] Discharge instructions and discharge home medications reviewed with Patient and a copy given. All questions have been answered and understanding verbalized.
--- NOTE | 2021-06-22 21:01 | DS ---
DATE OF DISCHARGE: 06/22/2021 ADMITTING DIAGNOSES: COVID-19 respiratory failure and pneumonia. DISCHARGE DIAGNOSES: Resolving COVID-19 respiratory failure, resolving pneumonia, chronic hypoxia (we currently have her on 100% nonrebreather), diabetes, fibromyalgia, hyperlipidemia, hypertension, rheumatoid arthritis, cholecystectomy, tubal ligation, hernia repair. CONSULTS: None. PROCEDURES: None. HOSPITAL COURSE: The patient is a pleasant 71-year-old female who presented to the ER on 06/10 with shortness of breath and cough for 5 days. She was fatigued and congested. We checked her for COVID-19, she was positive. She claims she has been vaccinated. We gave her full COVID protocol including remdesivir, Rocephin, doxycycline, vitamins, minerals, albuterol, oxygen, codeine cough syrup, aspirin, and Lovenox. She has completed remdesivir and the antibiotics and the steroids, but still was quite sick. She was still hypoxic. We had to put her on 100% nonrebreather. Today, I saw and examined her. She is stable, but still sick. We got her accepted at a long-term acute care facility. We plan to discharge to [facility]. DISPOSITION: Long-term acute care. ACTIVITY: As tolerated. DIET: Low sodium. DISCHARGE MEDICATIONS: We currently have her on Humalog insulin 5 units t.i.d., Lantus insulin 10 units at bedtime, aspirin 81 a day, guaifenesin with codeine cough syrup 5 mL q. 6, Microzide 12.5 daily, Lactobacillus 1 capsule daily, Cozaar 50 a day, vitamin D 5000 units daily, Protonix 40 a day, nortriptyline 25 at bedtime, Lipitor 40 at bedtime, senna, Ultram 50 q. 4, 5000 units of subcutaneous insulin for DVT prophylaxis, p.r.n. Tylenol, p.r.n. Percocet 5 mg 2 tabs q. 4 p.r.n., Ambien 10 at bedtime, calcium carbonate 500 p.r.n., and Zofran p.r.n. TOTAL TIME: 36 minutes. QUAN/LG/OLGA DR: QUAN/arian TID: [id number]
== END 2021-06-22 18:18 | DRG 177 ==
LOC: ER 21:41 → ED HOLD 23:22 → 5 SOUTH 23:59
PROVIDERS: ADMIT Internal Medicine; ATTEND Internal Medicine
PROC: XW033E5 Introduction of Remdesivir Anti-infective into Peripheral Vein, Percutaneous Approach, New Technology Group 5 (ICD-10-PCS; principal; 2021-06-14)
DX: U07.1 COVID-19 (principal); J12.82 Pneumonia due to coronavirus disease 2019; J96.01 Acute respiratory failure with hypoxia; D84.821 Immunodeficiency due to drugs; E87.1 Hypo-osmolality and hyponatremia; E11.9 Type 2 diabetes mellitus without complications; E78.00 Pure hypercholesterolemia, unspecified; E78.5 Hyperlipidemia, unspecified; E87.6 Hypokalemia; I10 Essential (primary) hypertension; M06.9 Rheumatoid arthritis, unspecified; M79.7 Fibromyalgia; Z79.899 Other long term (current) drug therapy; Z82.49 Family history of ischemic heart disease and other diseases of the circulatory system; Z90.49 Acquired absence of other specified parts of digestive tract; Z98.51 Tubal ligation status; Z66 Do not resuscitate
CPT/HCPCS: 36415; 71045; 80048; 80053; 81001; 82962; 83605; 84484; 85007; 85025; 87040; 87086; 87186; 87428; 93005; 96361; 96374; 96375; J0696; J1100; J1644; J1815; J7030; J7050; 97110-GP; 97116-GP; 97530-GO; 97530-GP; 97535-GO; 99285-25; G0378